=== PATIENT | male | born 1955 | race Caucasian/White ===

== ENCOUNTER 2018-01-08 09:00 | Outpatient (RCR) | payer MEDICAID, SELFPAY ==
--- NOTE | 2017-07-21 10:53 | HP.PTEVAL ---
Patient's Visit Information MAGALY MENDES is a 62 year old M referred to Physical Therapy by Silverio Mccoy with a diagnosis of CVA. Date of Evaluation: 07/21/17 Physical Therapist: Lloyd Quick DPT, OC - Visit Plan Frequency: 2x /Week Duration: 4-6 Weeks Plan: 2x/week for 4-6 weeks for... Gait training wioth decreasding AD as safety allows. Balance static and dynamic, including pregait. R LE strength and coordination/proprioception ex. HS and gastroc stretches. progress HEP - Subjective Subjective: Had CVA 02/27. Fell in the middle of floor(no injuries) In hospital 12 days then reheb for 8 weeks. Out of rehab 05/30. Had home health til 2 weeks ago. Doing standing and sitting ex at home. Symptoms are R sided weakness in the knee. R arm doesn;t work well. Uses keven walker in L mod I, keven cane with assist. 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 Lives with brother now due to stroke but wants to be on own when he gets better. Sleep is up every two hours due to water pill. Currently napping and watching tV. Walks outside [address]. Dresses self, One handed makes dishes and cleaning hard. Bathroom OK I with L UE. Showering in walk in shower seated I. Get to walking better is goal. - Pain R UE Pain Intensity (Out of 10): 3 Pain Intensity Range: 2, 3 - Objective Walks with keven walker in L, decent step lengths, R leg abducted mildly, slow but mod I, diminished motorcontrol in knee and ankle. Transfers out of chair leaning to L and using L hand. Mat mobility I but poor motor control R UE and LE. Needs to use L side. Standing balance is good but WB mostly L. Step are not observed today but subjectively using L only and needs rail and down backwards. R LE motor control is poor. gastroc and soleus and HS are tight on R vs. L. R hip strength 3+, L is 4. R knee strength ext 4 and flexion 4-, L is 5/5. ankle 5/5 L and 4/5 in ROM limited. reflexes 2/3 in patella and achilles. Sensation WNL to gross light touch B. Ambulate with LBQC L SBA,. Ambulate without AD poor confidence and short L step length. R leg is still abducted and hesitant to shift weight FW and to R. Romberg 30 eo and 30 sec ec easily but relies on L. can tolerate moderate perturbations. - Goals Goal 1:: Ambulate with cane I withotu gait deviations community Goal Time Frame: 4-6 Weeks Goal 2:: Steps with one rail reciprocally and I Goal Time Frame: 4-6 Weeks Goal 3:: Able to tolerate FGA without AD Goal Time Frame: 4-6 Weeks Goal 4:: I approp R LE exercises. Goal Time Frame: 4-6 Weeks - Rehabilitation Potential Physical Therapy Diagnosis: CVA R sided motor deficitis LE limiting gait and mobility. OT liu love care of UE. Rehabilitation Potential: Fair - Anticipated Interventions Patient/Client Instruction: Educate patient on: Condition, Plan of Care For the Purpose of:: To improve ability of physical actions for home/community/work/leisure, To improve gait and locomotor functions Therapeutic Exercise to Include: Strength training, Balance training, Coordination, Flexibilty training For the Purpose of:: To improve ability of physical actions for home/community/work/leisure, To improve gait and locomotor functions Thank you for the opportunity to evaluate your patient. For Medicare and Medicare HMO plans, please review the plan of care and approve it. It will need to be FAXED BACK to us at [phone] for Medicare purposes. Please let me know if there are questions or concerns regarding this plan of care. Physician Signature: Date:
--- NOTE | 2017-07-21 11:23 | HP.OTEVAL ---
Patient's Visit Information MAGALY MENDES is a 62 year old M, referred to Occupational Therapy by Silverio Mccoy,, with a diagnosis of CVA. Date of Evaluation: 07/21/17 Occupational Therapist: Cassandra Beltran, CYRIL/Jose Angel, CHT - Subjective Subjective: PT suffered a CVA 02-27-17- suffering a fall during the process and may have injured his right shoulder during the fall. Pt went to ER in [place] was released and drove home 2 hours and then went to the [facility] and was dx and treated for his CVA- pt states he was at the hospital 10-12 days and then went to rehab in [place] for 8 weeks- pt states he moved in with his brother and was reciving home therapy- but he was D/C from home services about two weeks ago- pt would like to get more funciton back to increase his ind. with IADLS and ADLS. 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 5 degrees left WNL ROM Comments: limited RUE AROM- right shoulder PROM is limited due to pain in shoulder- - Strength Heading And Priming Tool Setter: right unable left 115# Lateral Pinch: right Unable left 16# Tripod Pinch: right unable left 12 - Movement Muscle Tone: mod tone in right UE grossly throughout - Stroke Specific Quality of Life Total SS-QOL Score: 128 - Goals Goal:: pt will demo a right supervisor carbon paper coating strength of 50# or greater to increase ind with IADLS by d/c Goal:: pt will demo a increase in righ UE AROM to improve his ind. with BADLS and IADLS Goal:: pt will report pain no greater than 2/10 with right UE ROM by d/c Goal:: pt will demo a gross grasp to warehouse picker a variety of different size objects as precureser for use of right hand for eating. - Rehabilitation General Assessment: right UE Rehabilitation Potential: Good - Anticipated Interventions Anticipated Interventions: A/AAROM/PROM, Strengthening, Modalities, Orthoses, Neuro Reeducation, Education re assistive Equipment - Visit Plan Frequency: 2x /Week Duration: 2 Months General Plan: Initiate OT services 2x week for 8 weeks - work with decrease tone and improve pts functional rom for pt to regain right UE at max potential TEXT: Thank you for the opportunity to evaluate your patient. For Medicare and Medicare HMO plans, please review the plan of care and approve it. It will need to be FAXED BACK to us at [phone] for Medicare purposes. Please let me know if there are questions or concerns regarding this plan of care. Physician Signature: Date:
--- NOTE | 2017-08-23 10:58 | OTREVAL_ITS ---
Silverio Mccoy, It has been my pleasure to treat MAGALY MENDES over the last 10 visits for CVA. Please see the progress note below for an update on the occupational therapy plan of care! Subjective: pain yesterday was terrible- pain started monday night Objective/Function: pt demo in sup- pt mikal. shoulder flex to 95 degrees- increase pain in right shoulder with movment past this degree-. pt developing a right elbow increase in tone- mod-max tone and contracture to -30 degrees-. mod-max tone with forearm supination - Plan Frequency: 2x /Week Duration: 2 Months Plan: rec'd pt to work with family doctor to seek nurologist-. and ortho for shoulder pain Goals - Goals Goal:: pt will demo a right occupational physician strength of 50# or greater to increase ind with IADLS by d/c Goal:: pt will demo a increase in righ UE AROM to improve his ind. 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 Anticipated Interventions Anticipated Interventions: A/AAROM/PROM, Strengthening, Modalities, Orthoses, Neuro Reeducation, Education re assistive Equipment Please do not hesitate to contact me at [phone] by phone or Fax: if you have questions or concerns regarding this new plan of care! Sincerely, Cassandra Beltran, OTR/L, CHT
--- NOTE | 2017-08-23 11:05 | HP.PTREVAL_ITS ---
Silveroi Mccoy, It has been my pleasure to treat MAGALY MENDES over the last 9 visits for CVA. Please see the progress note below for an update on the physical therapy plan of care! Subjective: R knee not getting any stronger. Been dragging R toe more. Using hemiqalker 100% of the time. R arm still hurting 2/10. Balance going the right way. Bed/chair transfers are OK. Doing exercises at home daily standing. Objective/Function: Has some strength in hip flexors and DF on r and HS but motor recruitment pattern is off for gait. Ambulating with hemiwalker L slowly , steos with R and meets it with L , no L step length and this is limiting and swing phase for R LE for patient. No confidence without AD but can do a couple short steps with R but bno swing through with R. Plan Plan: 2x/week x 4 for gait and pregait trying to get L step length and more weight through R LE. Work with keven walker and parallel bars on gait training. Goals Goal 1:: Ambulate with cane I withotu gait deviations community Goal Time Frame: 4-6 Weeks Goal Progress: Progressing Goal 2:: Steps with one rail reciprocally and I Goal Time Frame: 4-6 Weeks Goal Progress: not confident. Goal 3:: Able to tolerate FGA without AD Goal Time Frame: 4-6 Weeks Goal Progress: Progressing Goal 4:: I approp R LE exercises. Goal Time Frame: 4-6 Weeks Goal Progress: Goal Met Goal 5:: Gait in community with approp R swing phase Goal Time Frame: 2-4 Weeks Goal Progress: NEW GOAL Goal 6:: Ambulate 100 feet without AD safely in PT Goal Time Frame: 2-4 Weeks Goal Progress: NEW GOAL. Anticipated Interventions Patient/Client Instruction: Educate patient on: Condition, Plan of Care For the Purpose of:: To improve ability of physical actions for home/community/ work/leisure, To improve gait and locomotor functions Therapeutic Exercise to Include: Strength training, Balance training, Coordination, Flexibilty training For the Purpose of:: To improve ability of physical actions for home/community/ work/leisure, To improve gait and locomotor functions Please do not hesitate to contact me at [phone] by phone or Fax: if you have questions or concerns regarding this new plan of care! Sincerely, Lloyd Quick, DPT, OC
--- NOTE | 2017-09-20 09:34 | HP.PTREVAL_ITS ---
Silverio Mccoy, It has been my pleasure to treat MAGALY MENDES over the last 16 visits for CVA. Please see the progress note below for an update on the physical therapy plan of care! Subjective: Getting around better. R toe drags at times when he is tired. No falls, uses keven walker all the time. Staying fairly active. Walking at home well but arm limits his ADLs. Steps at home with left leg and rail. Objective/Function: Sit to stand to sit I with UE. Walks with keven walker L mod I. Walks with st cane L mod I but diminished confidence. Walks 15 feet today in bars without UE well with CGA, good support on R LE but no knee flexion at swing phase. Has good step length B in all gait today without VC. Steps are with L LE only up and down but with VC and L rail can use R LE up and down steps, obviously weaker and needs 50% help with UE when using R LE. Stand balance is good. See FGA for dynamic balance. OVERALL MUCH BETTER IN VERTICAL POSITION AND PROGRESSING NICELY. DF 3/5 on R LE and knee and ankle stiff/ hypertonic. but aROM WFL. Plan Plan: 2x/week for 4 weeks for gait without AD, Stair training with R LE, R DF strength, gastroc stretching and HIP PROM/strength R. Functional progression. Goals Goal 1:: Ambulate with cane I withotu gait deviations community Goal Time Frame: 4-6 Weeks Goal Progress: Progressing Goal 2:: Steps with one rail reciprocally and I Goal Time Frame: 4-6 Weeks Goal Progress: Progressing Goal 3:: Able to tolerate FGA without AD Goal Time Frame: 4-6 Weeks Goal Progress: Goal Met Goal 4:: Walk 20 feet without AD safe aand I and steps reciprocal with one rail. Goal Time Frame: 4-6 Weeks Goal Progress: NEW GOAL Goal 5:: Gait in community with approp R swing phase Goal Time Frame: 2-4 Weeks Goal Progress: Goal Met Goal 6:: Cane main support device fro mobility. Goal Time Frame: 4-6 Weeks Goal Progress: NEW GOAL. Anticipated Interventions Patient/Client Instruction: Educate patient on: Condition, Plan of Care For the Purpose of:: To improve ability of physical actions for home/community/ work/leisure, To improve gait and locomotor functions Therapeutic Exercise to Include: Strength training, Balance training, Coordination, Flexibilty training For the Purpose of:: To improve ability of physical actions for home/community/ work/leisure, To improve gait and locomotor functions Please do not hesitate to contact me at [phone] by phone or Fax: if you have questions or concerns regarding this new plan of care! Sincerely, Lloyd Quick, DPT, OC
--- NOTE | 2017-09-25 10:33 | OTREVAL_ITS ---
Silverio Mccoy, It has been my pleasure to treat MAGALY MENDES over the last 18 visits for CVA. Please see the progress note below for an update on the occupational therapy plan of care! Subjective: Pt states he has no pain, no difference noted. Objective/Function: pt demo improvement in grasp and release- as well as elbow flex. pt is making gains in ROM and would benefit from cont. therapy services- Plan Frequency: 2x /Week Duration: 2 Months Plan: Cont POC Goals - Goals Goal:: pt will demo a right assistant front office manager strength of 50# or greater to increase ind with IADLS by d/c Goal:: pt will demo a increase in righ UE AROM to improve his ind. with BADLS and IADLS Goal:: pt will report pain no greater than 2/10 with right UE ROM by d/c Goal:: pt will demo a gross grasp to meat pickler a variety of different size objects as precureser for use of right hand for eating. Anticipated Interventions Anticipated Interventions: A/AAROM/PROM, Strengthening, Modalities, Orthoses, Neuro Reeducation, Education re assistive Equipment Please do not hesitate to contact me at [phone] by phone or Fax: if you have questions or concerns regarding this new plan of care! Sincerely, Cassandra Beltran OTR/L, CHT
--- NOTE | 2017-10-19 11:26 | HP.PTREVAL_ITS ---
Silverio Mccoy, It has been my pleasure to treat MAGALY MENDES over the last 23 visits for CVA. Please see the progress note below for an update on the physical therapy plan of care! Subjective: Doing OK, no pain. Sleeping is OK, gets up once per night to pee. HEP: standing sink ex adn supine strength. Daily. Stretching also daily. Watches alot of TV during the day. No current hobbies. 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 Dresses self I, bathroom I. Shower I. Brother makes sure he is safe on the steps. Uses keven walker at home, feels ready for LBQC. Objective/Function: walking with cane Mod I in therapy, no toe catching. Steps are reciprocal with rail. Walking steps are equal and much improved, R still lacks confidence. OVERALL SHOWING FUNCTIONAL IMPROVEMENT. LACKS HUIGHER LEVEL BALANCE FOR STEPPING OVER. CONFIDENCE IS LOW AND WILL NEED PROGRESSION WITH UNEVEN SURFACES. Plan Plan: 2X/WEEK for 4 weeks to work on gait with stepping over, turning, stooping and picking up, foam balance and continuing movement of R LE. Goals Goal 1:: Ambulate with cane I withotu gait deviations community Goal Time Frame: 4-6 Weeks Goal Progress: Progressing Goal 2:: pt have and I use of AFO which he will get OTC Goal Time Frame: 4-6 Weeks Goal Progress: NEW GOAL Goal 3:: 20/30 FGa to minimize future fall risk Goal Time Frame: 4-6 Weeks Goal Progress: NEW GOAL Goal 4:: Walk 20 feet without AD safe aand I and steps reciprocal with one rail. Goal Time Frame: 4-6 Weeks Goal Progress: Goal Met Goal 5:: Gait in community with approp R swing phase Goal Time Frame: 2-4 Weeks Goal Progress: Goal Met Goal 6:: Cane main support device fro mobility and pt get around at home without AD Goal Time Frame: 4-6 Weeks Goal Progress: Progressing Anticipated Interventions Patient/Client Instruction: Educate patient on: Condition, Plan of Care For the Purpose of:: To improve ability of physical actions for home/community/ work/leisure, To improve gait and locomotor functions Therapeutic Exercise to Include: Strength training, Balance training, Coordination, Flexibilty training For the Purpose of:: To improve ability of physical actions for home/community/ work/leisure, To improve gait and locomotor functions Please do not hesitate to contact me at [phone] by phone or Fax: if you have questions or concerns regarding this new plan of care! Sincerely, Lloyd Quick, DPT, OC
--- NOTE | 2017-10-19 12:14 | HP.OTREVAL ---
Silverio Mccoy, It has been my pleasure to treat MAGALY MENDES over the last 25 visits for CVA. Please see the progress note below for an update on the occupational therapy plan of care! Subjective: pt arrives with brother- pt states he is doing well- Objective/Function: pt demo shoulder flex passive to 110 pt gets pain in shoulder with more flex- - active flex to 30 degrees-. elbow flex to 90 and ext to -30-. pt demo the ability to grasp toothbrush in right hand with thumb and IF-. with grasp pt demo increase flex of digits but tires with ext after few trials- with use of FES pt demo full digit and wrist ext. pt's pain in right shoulder with PROM is limiting factor with gainig more PROM at this time-. PT is working hard and is making gains with his recovery- Plan Frequency: 2x /Week Duration: 2 Months Plan: Pt is making gains with is RUE recovery- He has demo increase ability to use right hand for assistive hand with BADLS- pt would benefit from cont. therapy services 2x week for 8 weeks- to gain increase ROM and functional grasp/release for useo of RUE with BADLS. Therapy will focus on shoulder flex while pt is sup on mat- use of dowel kate to decrease shoulder tightness and risk of frozen shoulder-pt will initiate use of shoulder pully at home for PROM - stressed the need of performing tasks slow- with pts improvments will work on a grasp release tasks for BADLS. Goals - Goals Goal:: pt will demo a right career center director strength of 50# or greater to increase ind with IADLS by d/c Goal:: pt will demo a increase in righ UE AROM to improve his ind. with BADLS and IADLS Goal:: pt will report pain no greater than 2/10 with right UE ROM by d/c Goal:: pt will demo a gross grasp to picker and sorter load and unload a variety of different size objects as precureser for use of right hand for eating. Anticipated Interventions Anticipated Interventions: A/AAROM/PROM, Strengthening, Modalities, Orthoses, Neuro Reeducation, Education re assistive Equipment Please do not hesitate to contact me at [phone] by phone or if you have questions or concerns regarding this new plan of care! Sincerely, Cassandra Beltran, OTR/L, CHT
--- NOTE | 2017-11-13 11:00 | HP.PTREVAL_ITS ---
Silverio Mccoy, It has been my pleasure to treat MAGALY MENDES over the last 30 visits for CVA. Please see the progress note below for an update on the physical therapy plan of care! Subjective: No pain, sleeping well. Sleeping 4-5 hours. Naps in afternoon. Was outside a lot this weekend. Went to visit friends yesterday. Walking with QC at home. Had steps without rail and did OK, used doorframe. Dresses self in ten minutes. Getting socks on with one hand is the hardest part. Bathroom self, showers in walk in shower with two grab bars and has bench to sit on but is standing. Saw doctor last weeka dn will f/u in april. No falls lately. Uses keven walker upstairs for 15 feet as he has to meander around a couple things. Getting in and out of bed I. Using steps at home using L rail up with both feet, backs down due to dysfunction of R UE. Catches toe on change of surface when tired once every couple days. Objective/Function: Pt not interested in AFO. Patient ambulates Mod I with QC , goes two full laps easily without QC and still mildly wide VARGHESE, no catchin toes note but R LE still lacks flexion at knee at swing whicih is improving and getsd better with VC. Pt is slow to change directions and poor confidence here.Strength in R LE 4/5 knee flexion and extension, tone limtis knee flexion actively ROM. Able to get up off floor with Min a and VC using object to push with L UE and VC for technique. Able to walk up steps with CGA without UE reciprocal but obviously weaker on R, coming down steps needs arm on rail to use R LE. OVERALL SLOW IMPROVEMENT AND GETTING HARDER TO NOTICE. STILL HAVE SOME WORK TO DO WITH FUNCTIONAL MOBILITY OFF FLOOR, DESCENDING STEPS AND TURNS WHILE WALKING WITHOUT AD. Plan Plan: 2x/week for 4 weeks.... Work on transfer up off floor, ian cending steps reciprocal without rail, walking changing directions and progression to more aggressive HEP vs the sink ex he is doing now. Walk outside when weather allows. Goals Goal 1:: Ambulate with cane I withotu gait deviations community Goal Time Frame: 4-6 Weeks Goal Progress: met, stilld eviations. Goal 2:: Get off floor without assist, descend steps without rail Goal Time Frame: 4-6 Weeks Goal Progress: NEW GOAL Goal 3:: 20/30 FGa to minimize future fall risk Goal Time Frame: 4-6 Weeks Goal Progress: Progressing Goal 4:: Walk 20 feet without AD safe aand I and steps reciprocal with one rail. Goal Time Frame: 4-6 Weeks Goal Progress: Goal Met Goal 5:: Gait in community with approp R swing phase Goal Time Frame: 2-4 Weeks Goal Progress: Goal Met Goal 6:: Cane main support device fro mobility and pt get around at home without AD Goal Time Frame: 4-6 Weeks Goal Progress: Goal Met Anticipated Interventions Patient/Client Instruction: Educate patient on: Condition, Plan of Care For the Purpose of:: To improve ability of physical actions for home/community/ work/leisure, To improve gait and locomotor functions Therapeutic Exercise to Include: Strength training, Balance training, Coordination, Gait and locomotor training For the Purpose of:: To improve ability of physical actions for home/community/ work/leisure, To improve gait and locomotor functions Please do not hesitate to contact me at [phone] by phone or Fax: if you have questions or concerns regarding this new plan of care! Sincerely, Lloyd Quick, HILLARY[place], OC
--- NOTE | 2017-12-07 10:22 | HP.PTREVAL_ITS ---
Silverio Mccoy, It has been my pleasure to treat MAGALY MENDES over the last 37 visits for CVA. Please see the progress note below for an update on the physical therapy plan of care! Subjective: Using cane most of time at home. Walks short 5 feet without it. Sleeping Ok. Steps are no problem with railing at home either foot. Does exercises for OT and PT. Getting outside is hard due to weather. doing exercises regularly at home. Objective/Function: Steps with rail reciprocal safe and I. Gait is good, tends to peg leg R but can bend it well with VC. No toe catching today after brutal 30 minute workout. FGA improving. OVERALL PATIENT DOING WELL IMPROVING ON FGA AND GAIT SAFETY. HE WILL DO WELL WITH HEP IF HE STAYS ACTIVE WITHOUT PT, THAT IS MY BIGGEST CONCERN. WITH HIS LIMITED VISITS, IT IS TIME TO LET HIM TRY ON HIS OWN FOR A MONTH AND RECHECK END DECEMBER.Recommended continued use of cane. Pt has info to get OTC AFO but continues to refuse. Plan Plan: Pt to continue HEP adn stay active, clal if problems. otherwise f/u in one month for FGA, outdoor ambulation and recheck. Goals Goal 1:: Ambulate with cane I withotu gait deviations community Goal Time Frame: 4-6 Weeks Goal Progress: approp gait dev. Goal 2:: Get off floor without assist, descend steps without rail Goal Time Frame: 4-6 Weeks Goal Progress: Goal Met Goal 3:: 20/30 FGa to minimize future fall risk Goal Time Frame: 4-6 Weeks Goal Progress: Goal Met Goal 4:: Walk 20 feet without AD safe aand I and steps reciprocal with one rail. Goal Time Frame: 4-6 Weeks Goal Progress: Goal Met Goal 5:: Pt maintain activity level and FGa score without PT for one month Goal Time Frame: 2-4 Weeks Goal Progress: NEW GOAL Goal 6:: Cane main support device fro mobility and pt get around at home without AD Goal Time Frame: 4-6 Weeks Goal Progress: Goal Met Anticipated Interventions Patient/Client Instruction: Educate patient on: Condition, Plan of Care For the Purpose of:: To improve ability of physical actions for home/community/ work/leisure, To improve gait and locomotor functions Therapeutic Exercise to Include: Strength training, Balance training, Coordination, Gait and locomotor training For the Purpose of:: To improve ability of physical actions for home/community/ work/leisure, To improve gait and locomotor functions Please do not hesitate to contact me at [phone] by phone or Fax: if you have questions or concerns regarding this new plan of care! Sincerely, HILLARY ParkerT, OC
--- NOTE | 2018-01-08 09:46 | HP.PTDCSUM_ITS ---
HP - PT D/C Summary It has been my pleasure to treat MAGALY MENDES under orders from Silverio Mccoy , for the diagnosis of CVA for a total of 38 visit(s). Discharge Date: 01/08/18 Please see the following information for a summary of their discharge status. - Subjective Subjective: Getting around status quo, one day at a time. Going up and down stairs pretty good. No falls. Using cane 90% of time. Walks without it at times and is pretty safe but wants to use it. R arm hurts a little bit at night sometimes. will get botox at some point in arm. Walking on concrete outside. Did some grass walking pn the weekend and was slippery and had to be careful. Do my exercises dailya nd watch TV. Carrying some dishes to the sink. Living with brother and bedroom is upstairs. Doing steps OK. Needs more time with brother but not more therapy. - Pain R UE Pain Intensity (Out of 10): 0 - Overall Improvement % Improvement: 50 - Objective Objective/Function: FGA is the same as last time. Pt walked full lap on grass and hills around building without aD without LOB, slow and steady. continues to have slightly wide VARGHESE and difficulty bending R knee but only caught toe one time today and no tripping or falling or LOB. Slight R trendelenberg continues but fucntional walker without AD today. Educated to take care when tired. Pt will continue to use cane. steps reciprocal without rail up and needs rail for reciprocity to descend. - Goals Goal 1:: Ambulate with cane I withotu gait deviations community Goal Progress: approp gait dev. Goal 2:: Get off floor without assist, descend steps without rail Goal Progress: Goal Met Goal 3:: 20/30 FGa to minimize future fall risk Goal Progress: Goal Met Goal 4:: Walk 20 feet without AD safe aand I and steps reciprocal with one rail. Goal Progress: Goal Met Goal 5:: Pt maintain activity level and FGa score without PT for one month Goal Progress: Goal Met Goal 6:: Cane main support device fro mobility and pt get around at home without AD Goal Progress: Goal Met - Plan Plan: D/C, pt to doctor in 3 months. Does nto wish to pursue AFO. - D/C Information Discharge Comments: Pt maintaining mobility on own with HEP very well. lacks confidence in mobility despite walking on hilss and grass without LOB today. Biggest concern is OT for arm. Awaiting botox injection as arm is what keeps him from giing back on his own(Only one functional arm). If there are questions or concerns regarding this patient's physical therapy, please feel free to call me at [phone]. Thank you for the referral of this patient. Sincerely, Lloyd Quick, DPT, OC
--- NOTE | 2018-01-24 07:56 | HP.OTDCNRP_ITS ---
HP - Discharge Summary - Patient Information MAGALY MENDES was seen in my office for initial evaluation on 07/21/17. The following Plan of Care was established for this patient: Initial Frequency: 2x /Week Initial Duration: 2 Months Plan: pt has [address] pt on hold until he recives botox and get pt scheduled following botox - Anticipated Interventions Anticipated Interventions: A/AAROM/PROM, Strengthening, Modalities, Orthoses, Neuro Reeducation, Education re assistive Equipment This patient was last seen in our office 11/09/17. Pertinent comments regarding their Occupational therapy will appear below: Pt was seem in OT to increase functional use of UE. Therapy was placed on hold until pt was to get botox injections. he has not done so at this time. OT will D /C pt at this time and return with new order after Botox. At this point I will be discontinuing this patient from occupational therapy. I would be happy to see this patient again in the future if found appropriate by the physician. Thank you! Cassandra Beltran, OTR/L, CHT
== END 2018-01-08 19:00 | disposition home or self-care (01) ==
LOC: PT 09:00
PROVIDERS: Family Provider Family Medicine; PCP Family Medicine; Visit Provider Family Medicine
DX: Z86.73 Personal history of transient ischemic attack (TIA), and cerebral infarction without residual deficits (principal)
CPT/HCPCS: 97110 ×10; 97112 ×4; 97162; 97166; 97530 ×6; 97116; 97140; G8987; G8988

== ENCOUNTER 2019-01-15 09:00 | Outpatient (RCR) | payer MEDICAID, SELFPAY ==
--- NOTE | 2018-11-15 11:18 | HP.OTEVAL_ITS ---
Patient's Visit Information MAGALY MENDES is a 63 year old M, referred to Occupational Therapy by Humphrey Moise, with a diagnosis of CVA. Date of Evaluation: 11/15/18 Occupational Therapist: Cassandra Beltran, CYRIL/Jose Angel, CHT - Subjective Subjective: Pt states he return to drAntonio for follow up. pt states he would like to gain increase ROM. Pt suffered a CVA in 2017. pt is currently living on his own, states he drives ind., and is LALITHA with ADLs and IADLs. pt would like to have more movement and function out of his left UE to possibly get a job. - ADLs Comments: pt is MOD ind. with ADLs and IADLS , drives ind. and does his own shopping. pt is wearing a brace at night on right wrist/hand to decrease tone, and does use the brace while he is driving. - Pain right UE 7 - ROM Shoulder: Right flex 20 right abd 85 left WNL Elbow: right -55/125 left WNL Forearm: right pron WFL, supination N. left WNL Wrist: wrist 10/15 left WNL ROM Comments: pt demo with ability to lightly close hand and demo ext of all digits- in this setting IF limited with PIP ex- pt indicates when he is home he is more relaxed and can straighten all his digits. 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 pt demo bicep -55/125. pt demo with no active foream supination. pt demo fair pronation abilit. pt demo with min wrist ext and digit ext. pt demo with min grasp and pinch - In-Hand Manipulation Finger to Palm Translation: Unable - Right, Normal - Left Palm to Finger Translation: Unable - Right, Normal - Left Shift: Unable - Right, Normal - Left Rotation: Unable - Right, Normal - Left - Quick DASH-Disab of Arm,Shoulder& Hand Quick DASH Score: 77.1595 - Goals Goal:: pt will demo right shoulder flex to 100* or greater without shoulder abduction compensation to increase ind with ADLs. Pt will demo right forearm supination to recive and hold object ind. for increase use of right UE for ADLS. pt will demo a increase in elbow ext by 20* to increase pts ind with picking objects up off the floor by d/c Goal:: pt will report pain no greater than 2/10 with use of right UE with ADLs and IADLs by d/c Goal:: pt will demo the ability to picker large, med, and small objects to assist with ADLS by d/c Goal:: pt will demo a reduction in right UE tone to min/mod tone of right UE by d/c. - Rehabilitation General Assessment: Right UE limited ROM and limited functional use of right UE for ADLs and IADLs. pt would benefit from skilled OT services 3x week for 6 weeks to increase pts functional ROM/ decrease tone and increase FMS of right UE for increase ind with ADLs and IADLs. Rehabilitation Potential: Fair - Anticipated Interventions Anticipated Interventions: A/AAROM/PROM, Triggerpoint Release, Modalities, Orthoses, Education re assistive Equipment, Home Program - Visit Plan Frequency: 3x /Week Duration: 6 Weeks TEXT: Thank you for the opportunity to evaluate your patient. For Medicare and Medicare HMO plans, please review the plan of care and approve it. It will need to be FAXED BACK to us at [phone] for Medicare purposes. Please let me know if there are questions or concerns regarding this plan of care. Physician Signature: Date:
--- NOTE | 2018-11-16 08:32 | HP.PTEVAL_ITS ---
Patient's Visit Information MAGALY MENDES is a 63 year old M referred to Physical Therapy by Humphrey Moise with a diagnosis of Stroke late effect. Date of Evaluation: 11/16/18 Physical Therapist: Lloyd Quick, HILLARYT, OCS, CSCS - Visit Plan Frequency: 3x /Week Duration: 2-4 Weeks Plan: 3x/week for 2-4 weeks for. Teach HS, quad, gastroc stretch for HEP. Teach LE focussing on R strength program patient can do at home and include R ankle as much as possible. Try to work to I over two weeks as patient has been through this prior and is poor with compliant with HEP, despite this, his mobility is better than I would have expected. - Subjective Findings: Came back for OT. Needed adjustments to UE. R LE doesn't do what he tells it. It is not getting better. Wants to walk better. Uses [employer] for crutcha s needed in L UE. Not using it much at home. Exercising alittle bit at home in easy chair. Not employed. Watches TV all day. Dresses self, bathes and bathroom I. Lives alone. Has steps at home to basement once a week to wash clothes. Backs down and up forward. Drive and grocery shop I. No falls. Sits down if gets tired. No pain. - Objective Pt walks with R spastic LE adn UE but I with and without LBQC in L UE, R knee flexes very little adn minimal ankle movement on R but safe and I. Trasnfers out of chair without UE I but WB mostly through L LE., Bed trasnfers via L sidelie I. steps are I with rail descending BW adn ascending forward. Needs rail and can do this at home with laundry. L LE AROM WFL, some mild tightness in HS/quad and gastroc/soleus. R LE very tight and high tone HS nad gastroc at -5 DF and -48 90/90 HS test. reflexes are 3/3 with clonus R LE achilles and patella, 2/3 L. Sensation WNl to gross light touch B LE. Strength is 4/5 R LE adn 4+ L. UE AROM limited R side due to stroke and seeing OT for this. - Balance Scores Functional Gait Assessment Score: 24 % Disability: 20.0000 - Goals Goal 1:: Patient I in appropriate HEP to stretch out R LE adn strengthen LE. Goal Time Frame: 4-6 Weeks - Rehabilitation Potential Physical Therapy Diagnosis: Deficits form stroke, poorly managed lacking HEP btu getting around fairly well. Rehabilitation Potential: Fair - Anticipated Interventions Patient/Client Instruction: Educate patient on: Condition, Plan of Care For the Purpose of:: To improve ability of physical actions for home/community/work/leisure Therapeutic Exercise to Include: Strength training, Flexibilty training, Active ROM For the Purpose of:: To increase ROM, To improve muscle performance and motor function, To improve health and function Thank you for the opportunity to evaluate your patient. For Medicare and Medicare HMO plans, please review the plan of care and approve it. It will need to be FAXED BACK to us at [phone] for Medicare purposes. For Medicare only, by signing this I certify the plan of care. Please let me know if there are questions or concerns regarding this plan of care. Physician Signature: Date:
--- NOTE | 2019-01-15 09:58 | HP.OTDCSUM_ITS ---
HP - OT D/C Summary It has been my pleasure to treat MAGALY MENDES under orders from Humphrey Moise, for the diagnosis of CVA for a total of 26 visit(s). Please see the following information for a summary of their discharge status. - Overall Improvement % Improvement: 30 - Objective Objective/Function: pt demo with shoulder flex at 80* this is increase from 20* with elbow bending, shoudler abduction at 90 with compensation- pt demo good control of elbow flex/ext, elbow ext at -30 and elbow flex 145 with mmt of elbow flex at 3+/5 and elbow ext at 4/5. pt demo with wrist flex and ext with good tenodisis- better movement from inital eval with MMT at 3/5 pts tone demo difficulty with consistent fluid motion. digits do demo increase in contracture at PIP joints with wrist motion. pt demo the ability to garbage pick up man pen, marker and nut/bolt off table top with use of thumb and IF. pt unable to pick smaller obkects up off table top. pt is using oval 8 splints on his right IF and MF to limit PIP hyper ext., a resting night brace., while driving padded hand brace to decrease tone in tone. - Goals Patient Goals: Regain Mobility, Be More Independent in ADLS Goal:: pt will demo right shoulder flex to 100* or greater without shoulder abduction compensation to increase ind with ADLs. Pt will demo right forearm supination to recive and hold object ind. for increase use of right UE for ADLS. pt will demo a increase in elbow ext by 20* to increase pts ind with picking objects up off the floor by d/c Goal:: pt will report pain no greater than 2/10 with use of right UE with ADLs and IADLs by d/c Goal:: pt will demo the ability to garbage pick up man large, med, and small objects to assist with ADLS by d/c Goal:: pt will demo a reduction in right UE tone to min/mod tone of right UE by d/c. - Plan Plan: D/C due to insurance decline in cont. of pts policy pt is D/C with HEP. - D/C Information Discharge Comments: pt was seen for visit- pt was making good gains with AROM and increase use of right UE. Pt was set with good HEP to cont. to challenge ROM and functional use of wrist/grasp- Pt is D/C due to insurance company dropping pts policy and will no longer cover pt. pt is looking into new insurance at this time. If there are questions or concerns regarding this patient's occupational therapy, please fell free to call me at [phone]. Thank you for the referral of this patient. Sincerely, Cassandra Beltran, OTR/L, CHT
== END 2019-01-15 19:00 | disposition home or self-care (01) ==
LOC: OT 09:00
PROVIDERS: Family Provider Family Medicine; PCP Family Medicine; Visit Provider Physical Medicine & Rehabilitation
DX: I69.398 Other sequelae of cerebral infarction (principal)
CPT/HCPCS: 97110; 97112; 97161; 97166; 97168; 97530; 97760

== ENCOUNTER → 2025-03-13 | Outpatient (CLI) | payer MEDICARE, SELFPAY ==
--- OUTSIDE RECORDS SUMMARY | 2025-03-13 06:12 | XMS RPT_ITS | CCD ---
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 Name Role Phone Hermilo Tay Unavailable Unavailable Jasvir, Hermilo Unavailable Unavailable Jasvir, Hermilo Unavailable Unavailable JERZY DO, DR WATT A Primary Care Physician JERZY DO, DR WATT A Primary Care Physician JERZY DO, DR ALYSA Cook Attending Unavailabl e JERZY DO, DR ALYSA Cook Primary Care Unavailabl e JERZY DO, DR ALYSA Cook Attending Unavailabl e JERZY DO, DR ALYSA Cook Primary Care Unavailabl e JERZY DO, DR ALYSA Cook Attending Unavailabl e JERZY DO, DR ALYSA Cook Primary Care Unavailabl e JERZY DO, DR ALYSA Cook Attending Unavailabl e JERZY DO, DR ALYSA Cook Primary Care Unavailabl e Medications Current Medications Medication Drug Class(es) Dates Sig (Normalized) Sig (Original) amLODIPine 5 mg oral tablet (6 sources) Dihydropyridine Calcium Channel Babar Start: 09-19-2023 End: 09-13-2024 amLODIPine 5 mg oral tablet Dose : 5 mg = 1 tab(s), Oral, qDay, # 90 tab(s), 3 Refill(s), Pharmacy: [facility], 183, cm, 08/31/23 8:12:00 EST, Height, kg, 08/31/23 8:02:00 EST, Dosing Weight Start Date: 09/19/23 Stop Date: 09/13/24 Status: Ordered Start: 12-18-2020 End: 08-27-2023 amLODIPine 5 mg oral tablet Dose : 5 mg = 1 tab(s), Oral, qDay, # 90 tab(s), 3 Refill(s), Pharmacy: [facility], 183, cm, 09/01/22 8:02:00 EST, Height, kg, 09/01/22 8:02:00 EST, Dosing Weight Start Date: 09/01/22 Stop Date: 08/27/23 Status: Ordered aspirin 325 mg oral tablet (6 sources) Platelet Aggregation Inhibitor, Nonsteroidal Anti-inflammatory Drug Start: 05-08-2019 aspirin 325 mg or al tablet Dose : 325 mg = 1 tab(s), Oral, Daily, 0 Refill(s) Start Date: 05/08/19 Status: Ordered atorvastatin 20 mg oral tablet (6 sources) HMG-CoA Reductase Inhibitor Start: 09-19-2023 End: 09-13-2024 atorvastatin 20 mg oral tablet Dose : 20 mg = 1 tab(s), Oral, qDay, # 90 tab(s), 3 Refill(s), Pharmacy: [facility], 183, cm, 08/31/23 8:12:00 EST, Height, kg, 08/31/23 8:02:00 EST, Dosing Weight Start Date: 09/19/23 Stop Date: 09/13/24 Status: Ordered Start: 12-18-2020 End: 08-27-2023 atorvastatin 20 mg oral tabl et Dose : 20 mg = 1 tab(s), Oral, qDay, # 90 tab(s), 3 Refill(s), Pharmacy: [facility], 183, cm, 09/01/22 8:02:00 EST, Height, kg, 09/01/22 8:02:00 EST, Dosing Weight Start Date: 09/01/22 Stop Date: 08/27/23 Status: Ordered baclofen 20 mg oral tablet (6 sources) gamma-Aminobutyric Acid-ergic Agonist Start: 05-08-2019 baclofen 20 mg oral tablet Dose : 20 mg = 1 tab(s), Oral, TID, 0 Refill(s) Start Date: 05/08/19 Status: Ordered empagliflozin 10 mg oral tablet (6 sources) Sodium-Glucose Cotransporter 2 Inhibitor Start: 09-19-2023 Jardiance 10 m g oral tablet Dose : 10 mg = 1 tab(s), Oral, qAM, # 90 tab(s), 3 Refill(s), Pharmacy: [facility], Controlled diabetes mellitus without long-term current use of insulin, 183, cm, 08/31/23 8:12:00 EST, Height, kg, 08/31/23 8:02:00 EST, Dosing Weight Start Date: 09/19/23 Status: Ordered Start: 09-01-2022 Jardiance 10 m g oral tablet Dose : 10 mg = 1 tab(s), Oral, qAM, # 90 tab(s), 3 Refill(s), Pharmacy: [facility], Controlled diabetes mellitus without long-term current use of insulin, 183, cm, 09/01/22 8:02:00 EST, Height, kg, 09/01/22 8:02:00 EST, Dosing Weight Start Date: 09/01/22 Status: Ordered Start: 09-01-2021 Jardiance 10 m g oral tablet Dose : 10 mg = 1 tab(s), Oral, qAM, # 90 tab(s), 3 Refill(s), Pharmacy: [facility], Controlled diabetes mellitus without long-term current use of insulin, 182.9, cm, 09/01/21 7:58:00 EST, Height, kg, 09/01/21 7:58:00 EST, Dosing Weight Start Date: 09/01/21 Status: Ordered Start: 01-27-2021 Jardiance 10 m g oral tablet Dose : 10 mg = 1 tab(s), Oral, qAM, # 90 tab(s), 3 Refill(s), Pharmacy: [facility], Controlled diabetes mellitus without long-term current use of insulin, 184, cm, 12/09/20 9:37:00 EDT, Height, kg, 12/09/20 9:37:00 EDT, Dosing Weight Start Date: 01/27/21 Status: Ordered hydroCHLOROthiazide 25 mg oral tablet (6 sources) Thiazide Diuretic Start: 09-19-2023 End: 09-13-2024 hydroCHLOROthiazide 25 mg oral tablet Dose : 25 mg = 1 tab(s), Oral, qDay, # 90 tab(s), 3 Refill(s), Pharmacy: [facility], 183, cm, 08/31/23 8:12:00 EST, Height, kg, 08/31/23 8:02:00 EST, Dosing Weight Start Date: 09/19/23 Stop Date: 09/13/24 Status: Ordered Start: 12-18-2020 End: 08-27-2023 hydroCHLOROthiazide 25 mg or al tablet Dose : 25 mg = 1 tab(s), Oral, qDay, # 90 tab(s), 3 Refill(s), Pharmacy: [facility], 183, cm, 09/01/22 8:02:00 EST, Height, kg, 09/01/22 8:02:00 EST, Dosing Weight Start Date: 09/01/22 Stop Date: 08/27/23 Status: Ordered lisinopril 40 mg oral tablet (6 sources) Angiotensin Converting Enzyme Inhibitor Start: 09-19-2023 lisinopril 40 mg ora l tablet Dose : 40 mg = 1 tab(s), Oral, qDay, # 90 tab(s), 3 Refill(s), Pharmacy: [facility], 183, cm, 08/31/23 8:12:00 EST, Height, kg, 08/31/23 8:02:00 EST, Dosing Weight Start Date: 09/19/23 Status: Ordered Start: 09-01-2022 lisinopril 40 mg oral tablet Dose : 40 mg = 1 tab(s), Oral, qDay, # 90 tab(s), 3 Refill(s), Pharmacy: [facility], 183, cm, 09/01/22 8:02:00 EST, Height, kg, 09/01/22 8:02:00 EST, Dosing Weight Start Date: 09/01/22 Status: Ordered Start: 01-13-2022 lisinopril 40 mg oral tablet Dose : 40 mg = 1 tab(s), Oral, qDay, # 90 tab(s), 3 Refill(s), Pharmacy: [facility], 182.9, cm, 09/01/21 7:58:00 EST, Height, kg, 09/01/21 7:58:00 EST, Dosing Weight Start Date: 01/13/22 Status: Ordered Start: 03-10-2021 lisinopril 40 mg oral tablet Dose : 40 mg = 1 tab(s), Oral, qDay, # 90 tab(s), 3 Refill(s), Pharmacy: [facility], 182.9, cm, 03/10/21 9:12:00 EDT, Height, kg, 03/10/21 9:12:00 EDT, Dosing Weight Start Date: 03/10/21 Status: Ordered metFORMIN hydrochloride 1000 mg oral tablet (6 sources) Biguanide Start: 09-19-2023 End: 09-13-2024 metFORMIN 1000 mg oral tablet (IR) Dose : 1,000 mg = 1 tab(s), Oral, BID, change in dose, # 180 tab(s), 3 Refill(s), Pharmacy: [facility], 183, cm, 08/31/23 8:12:00 EST, Height, kg, 08/31/23 8:02:00 EST, Dosing Weight Start Date: 09/19/23 Stop Date: 09/13/24 Status: Ordered Start: 12-18-2020 End: 08-27-2023 metFORMIN 1000 mg oral table t (IR) Dose : 1,000 mg = 1 tab(s), Oral, BID, change in dose, # 180 tab(s), 3 Refill(s), Pharmacy: [facility], 183, cm, 09/01/22 8:02:00 EST, Height, kg, 09/01/22 8:02:00 EST, Dosing Weight Start Date: 09/01/22 Stop Date: 08/27/23 Status: Ordered metoprolol tartrate 50 mg oral tablet (6 sources) beta-Adrenergic Babar Start: 09-19-2023 End: 09-13-2024 metoprolol tartrate 50 mg oral tablet Dose : 50 mg = 1 tab(s), Oral, BID, # 180 tab(s), 3 Refill(s), Pharmacy: [facility], 183, cm, 08/31/23 8:12:00 EST, Height, kg, 08/31/23 8:02:00 EST, Dosing Weight Start Date: 09/19/23 Stop Date: 09/13/24 Status: Ordered Start: 12-18-2020 End: 08-27-2023 metoprolol tartrate 50 mg or al tablet Dose : 50 mg = 1 tab(s), Oral, BID, # 180 tab(s), 3 Refill(s), Pharmacy: [facility], 183, cm, 09/01/22 8:02:00 EST, Height, kg, 09/01/22 8:02:00 EST, Dosing Weight Start Date: 09/01/22 Stop Date: 08/27/23 Status: Ordered Problems Active Problems Problem Classification Problem Date Documented Date Episodic/Chronic Diabetes mellitus with complications (5 sources) Hyperlipidemia due to type 2 diabetes mellitus; Translations: [Type 2 diabetes mellitus with other specified complication] Onset: 08-23-2023 03-02-2023 Chronic Diabetes mellitus without complication (8 sources) Diabetes mellitus; Translations: [Type 2 diabetes mellitus without complications] Onset: 02-21-2024 05-08-2019 Chronic Disorders of lipid metabolism (6 sources) Mixed hyperlipidemia 05-08-2019 Chronic Essential hypertension (6 sources) Benign essential hypertension 05-08-2019 Chronic Other circulatory disease (6 sources) History of cerebrovascular accident with residual deficit 05-08-2019 Episodic Other connective tissue disease (6 sources) Muscle weakness of upper limb 05-08-2019 Episodic Unclassified (1 source) Unknown / UNK(Unknown) Onset: 04-13-2017 Past or Other Problems Problem Classification Problem Date Documented Da te Episodic/Chronic Other screening for suspected conditions (not mental disorders or infectious disease) (2 sources) Elevated prostate specific antigen [PSA]; Translations: [Elevated prostate specific antigen [PSA]] Onset: 08-23-2023 Episodic Unclassified (1 source) G45.9/M62.81/I69. 392/G81.01/Z51.89 Onset: 04-13-2017 Results Test Name Value Interpretation Reference Range Facility .GFRon 02-21-2024 GFR Non- 96 ml/min/1.73sqm Normal [facility] ([place]) Comment on above: Result Comment: GFR Population mean for , Non- Americans Ages 20-29 = 116 mL/min/1.73 sq.m. Ages 30-39 = 107 mL/min/1.73 sq.m. Ages 40-49 = 99 mL/min/1.73 sq.m. Ages 50-59 = 93 mL/min/1.73 sq.m. Ages 60-69 = 85 mL/min/1.73 sq.m. Ages 70+ = 75 mL/min/1.73 sq.m. Chronic Kidney Disease: Less than 60 mL/min/1.73 square meters End Stage Renal Disease: Less than 15 mL/min/1.73 square meters Performed By: #### F T4 #### [address] [address] #### MCRSO #### [address] [address] GFR 117 ml/min/1.73sqm Normal [facility] ([place]) Comment on above: Result Comment: GFR Population mean for , Non- Americans Ages 20-29 = 116 mL/min/1.73 sq.m. Ages 30-39 = 107 mL/min/1.73 sq.m. Ages 40-49 = 99 mL/min/1.73 sq.m. Ages 50-59 = 93 mL/min/1.73 sq.m. Ages 60-69 = 85 mL/min/1.73 sq.m. Ages 70+ = 75 mL/min/1.73 sq.m. Chronic Kidney Disease: Less than 60 mL/min/1.73 square meters End Stage Renal Disease: Less than 15 mL/min/1.73 square meters Performed By: #### F T4 #### [place] [address] #### MCRSO #### [address] [address] [facility] 02-21-2024 HbA1c (Bld) [Mass fraction] 6.7 % High 4.3-6.4 [facility] ([place]) Comment on above: Performed By: #### F T4 #### [place] [id number] #### MCRSO #### [address] [address] CMPon 02-21-2024 Albumin Level 4.1 G/dL Normal 3.4-4.8 [facility] ([place]) Comment on above: Performed By: #### F T4 #### [place] [id number] #### MCRSO #### [facility] [address] [place], [place] [address] Albumin/Globulin [Mass ratio] 1.1 {ratio} Normal 1.1-2.5 [facility] ([place]) Comment on above: Performed By: #### F T4 #### [address] [address] #### MCRSO #### [address] [address] ALP [Catalytic activity/Vol] 74 U/L Normal 40-135 [facility] ([place]) Comment on above: Performed By: #### F T4 #### [address] [address] #### MCRSO #### [address] [address] ALT [Catalytic activity/Vol] 91 U/L High 16-63 [facility] ([place]) Comment on above: Performed By: #### F T4 #### [address] [address] #### MCRSO #### [address] [address] AST [Catalytic activity/Vol] 37 U/L Normal 10-40 [facility] ([place]) Comment on above: Performed By: #### F T4 #### [address] [address] #### MCRSO #### [address] [address] Bili Total 0.8 mg/dL Normal 0.2-1.0 [facility] ([place]) Comment on above: Result Comment: Use of this assay is not recommended for patients undergoing treatment with eltrombopag due to the potential for falsely elevated results. Performed By: #### F T4 #### [address] [address] #### MCRSO #### [address] [address] BUN/Creatinine Ratio 11 ratio Normal 7-27 [facility] ([place]) Comment on above: Performed By: #### F T4 #### [place] [id number] #### MCRSO #### [address] [address] Calcium [Mass/Vol] 8.8 mg/dL Normal 8.4-10.2 [facility] ([place]) Comment on above: Performed By: #### F T4 #### [address] [address] #### MCRSO #### [address] [address] Chloride [Moles/Vol] 103 mmol/L Normal 98-107 [facility] ([place]) Comment on above: Performed By: #### F T4 #### [address] [address] #### MCRSO #### [address] [address] CO2 [Moles/Vol] 26 mmol/L Normal 23-31 [facility] ([place]) Comment on above: Performed By: #### F T4 #### [place] [id number] #### MCRSO #### [address] [address] Creatinine [Mass/Vol] 0.80 mg/dL Normal 0.70-1.30 [facility] ([place]) Comment on above: Performed By: #### F T4 #### [address] [address] #### MCRSO #### [address] [address] Electrolyte Balance 11.0 mEq/L Normal 4.0-15.0 [facility] ([place]) Comment on above: Performed By: #### F T4 #### [address] [address] #### MCRSO #### [address] [address] Globulin 3.7 G/dL Normal [facility] ([place]) Comment on above: Performed By: #### F T4 #### [address] [address] #### MCRSO #### [address] [address] Glucose [Mass/Vol] 219 mg/dL High 80-115 [facility] ([place]) Comment on above: Performed By: #### F T4 #### [address] [address] #### MCRSO #### [address] [address] Potassium [Moles/Vol] 3.8 mmol/L Normal 3.5-5.1 [facility] ([place]) Comment on above: Performed By: #### F T4 #### [address] [address] #### MCRSO #### [address] [address] Sodium [Moles/Vol] 140 mmol/L Normal 136-145 [facility] ([place]) Comment on above: Performed By: #### F T4 #### [place] [address] #### MCRSO #### [address] [address] Total Protein 7.8 G/dL Normal 6.4-8.2 [facility] ([place]) Comment on above: Performed By: #### F T4 #### [address] [address] #### MCRSO #### [address] [address] Urea nitrogen [Mass/Vol] 9 mg/dL Normal 7-18 [facility] ([place]) Comment on above: Performed By: #### F T4 #### [place] [address] #### MCRSO #### [address] [address] LABORATORYOrdered By: SYSTEM SYSTEM on 02-21-2024 Albumin BCP dye [Mass/Vol] 4.1 G/dL Normal 3.4 - 4.8 G/dL AO ADM SS Albumin/Globulin [Mass ratio] 1.1 {ratio} Normal 1.1 - 2.5 ratio AO ADM SS ALP [Catalytic activity/Vol] 74 U/L Normal 40 - 135 U/L AO ADM SS ALT With P-5'-P [Catalytic activity/Vol] 91 U/L High 16 - 63 U/L AO ADM SS AST With P-5'-P [Catalytic activity/Vol] 37 U/L Normal 10 - 40 U/L AO ADM SS Bilirubin [Mass/Vol] 0.8 mg/dL Normal 0.2 - 1 .0 mg/dL AO ADM SS Comment on above: Interpretive Data: U se of this assay is not recommended for patients undergoing treatment with eltrombopag due to the potential for falsely elevated results. Calcium [Mass/Vol] 8.8 mg/dL Normal 8.4 - 10. 2 mg/dL AO ADM SS Chloride [Moles/Vol] 103 mmol/L Normal 98 - 10 7 mmol/L AO ADM SS CO2 [Moles/Vol] 26 mmol/L Normal 23 - 31 mmol/L AO ADM SS Creatinine [Mass/Vol] 0.80 mg/dL Normal 0.70 - 1.30 mg/dL AO ADM SS Electrolyte Balance 11.0 mEq/L Normal 4.0 - 15 .0 mEq/L AO ADM SS GFR/1.73 sq M.predicted among blacks MDRD (S/P/Bld) [Vol rate/Area] 117 ml/min/1.73sqm Invalid Interpretation Code AO Chemistry S Comment on above: Interpretive Data: GFR Population mean for , Non- Americans Ages 20-29 = 116 mL/min/1.73 sq.m. Ages 30-39 = 107 mL/min/1.73 sq.m. Ages 40-49 = 99 mL/min/1.73 sq.m. Ages 50-59 = 93 mL/min/1.73 sq.m. Ages 60-69 = 85 mL/min/1.73 sq.m. Ages 70+ = 75 mL/min/1.73 sq.m. Chronic Kidney Disease: Less than 60 mL/min/1.73 square meters End Stage Renal Disease: Less than 15 mL/min/1.73 square meters GFR/1.73 sq M.predicted among non-blacks MDRD (S/P/Bld) [Vol rate/Area] 96 ml/min/1.73sqm Invalid Interpretation Code AO Chemistry S Comment on above: Interpretive Data: GFR Population mean for , Non- Americans Ages 20-29 = 116 mL/min/1.73 sq.m. Ages 30-39 = 107 mL/min/1.73 sq.m. Ages 40-49 = 99 mL/min/1.73 sq.m. Ages 50-59 = 93 mL/min/1.73 sq.m. Ages 60-69 = 85 mL/min/1.73 sq.m. Ages 70+ = 75 mL/min/1.73 sq.m. Chronic Kidney Disease: Less than 60 mL/min/1.73 square meters End Stage Renal Disease: Less than 15 mL/min/1.73 square meters Globulin 3.7 G/dL Invalid Interpretation Code AO ADM SS Glucose [Mass/Vol] 219 mg/dL High 80 - 115 mg/dL AO ADM SS HbA1c (Bld) [Mass fraction] 6.7 % High 4.3 - 6.4 % AO ADM SS Potassium [Moles/Vol] 3.8 mmol/L Normal 3.5 - 5.1 mmol/L AO ADM SS Protein [Mass/Vol] 7.8 G/dL Normal 6.4 - 8.2 G/dL AO ADM SS Sodium [Moles/Vol] 140 mmol/L Normal 136 - 145 mmol/L AO ADM SS Urea nitrogen [Mass/Vol] 9 mg/dL Normal 7 - 18 mg/dL AO ADM SS Urea nitrogen/Creatinine [Mass ratio] 11 ratio Normal 7 - 27 ratio AO ADM SS LABORATORYOrdered By: Roma Major on 02-21-2024 Cholesterol [Mass/Vol] 106 mg/dL Normal 0 - 200 mg/dL AO ADM SS Comment on above: Interpretive Data: C holesterol Reference Interval: Less than 200 Desirable 200-239 Borderline high risk 240 and above High risk Cholesterol in HDL [Mass/Vol] 25 mg/dL Low 40 - 60 mg/dL AO ADM SS Cholesterol in LDL [Mass/Vol] 50 mg/dL Normal 0 - 130 mg/dL AO ADM SS Triglyceride [Mass/Vol] 156 mg/dL High 0 - 150 mg/dL AO ADM SS Comment on above: Interpretive Data: T riglyceride Reference Interval: Less than 150 Normal 150-199 Borderline high risk 200-499 High risk 500 or higher Very high risk LIPIDon 02-21-2024 Cholesterol [Mass/Vol] 106 mg/dL Normal 0-200 [facility] ([place]) Comment on above: Result Comment: Chol esterol Reference Interval: Less than 200 Desirable 200-239 Borderline high risk 240 and above High risk Performed By: #### F T4 #### [address] [address] #### MCRSO #### [address] [address] Cholesterol in HDL [Mass/Vol] 25 mg/dL Low 40-60 [facility] ([place]) Comment on above: Performed By: #### F T4 #### [place] [address] #### MCRSO #### [address] [address] Cholesterol in LDL [Mass/Vol] 50 mg/dL Normal 0-130 [facility] ([place]) Comment on above: Performed By: #### F T4 #### [place] [address] #### MCRSO #### [address] [address] Triglyceride [Mass/Vol] 156 mg/dL High 0-150 [facility] ([place]) Comment on above: Result Comment: Trig lyceride Reference Interval: Less than 150 Normal 150-199 Borderline high risk 200-499 High risk 500 or higher Very high risk Performed By: #### F T4 #### [place] [address] #### MCRSO #### [address] [address] FT4on 01-05-2024 Free T4 [Mass/Vol] 0.87 ng/dL Normal 0.76-1.46 [facility] ([place]) Comment on above: Performed By: #### F T4 #### [place] [address] #### MCRSO #### [address] [address] LABORATORYOrdered By: SYSTEM SYSTEM on 01-05-2024 Free T4 [Mass/Vol] 0.87 ng/dL Normal 0.76 - 1. 46 ng/dL AO ADM SS TPO Ab IA Qn 31 unit/mL Normal 0 - 60 unit/mL AH ADM SS Comment on above: Interpretive Data: * *Note - New Reference Range in effect 20 aTPOon 01-05-2024 anti-Thyroid Peroxidase 31 units/ml Normal 0-60 [facility] ([place]) Comment on above: Result Comment: No te - New Reference Range in effect 20 Performed By: #### F T4 #### [address] [address] #### MCRSO #### [place] [address] .GFRon 12-07-2023 GFR 110 ml/min/1.73sqm Normal [facility] ([place]) Comment on above: Result Comment: GFR Population mean for , Non- Americans Ages 20-29 = 116 mL/min/1.73 sq.m. Ages 30-39 = 107 mL/min/1.73 sq.m. Ages 40-49 = 99 mL/min/1.73 sq.m. Ages 50-59 = 93 mL/min/1.73 sq.m. Ages 60-69 = 85 mL/min/1.73 sq.m. Ages 70+ = 75 mL/min/1.73 sq.m. Chronic Kidney Disease: Less than 60 mL/min/1.73 square meters End Stage Renal Disease: Less than 15 mL/min/1.73 square meters Performed By: #### T SH, GFR, CMP #### [address] [address] GFR Non- 91 ml/min/1.73sqm Normal [facility] ([place]) Comment on above: Result Comment: GFR Population mean for , Non- Americans Ages 20-29 = 116 mL/min/1.73 sq.m. Ages 30-39 = 107 mL/min/1.73 sq.m. Ages 40-49 = 99 mL/min/1.73 sq.m. Ages 50-59 = 93 mL/min/1.73 sq.m. Ages 60-69 = 85 mL/min/1.73 sq.m. Ages 70+ = 75 mL/min/1.73 sq.m. Chronic Kidney Disease: Less than 60 mL/min/1.73 square meters End Stage Renal Disease: Less than 15 mL/min/1.73 square meters Performed By: #### T SH, GFR, CMP #### [address] [address] CMPon 12-07-2023 Albumin Level 4.1 G/dL Normal 3.4-4.8 [facility] ([place]) Comment on above: Order Comment: only draw these in November 2023 Performed By: #### T SH, GFR, CMP #### [address] [address] Albumin/Globulin [Mass ratio] 1.2 {ratio} Normal 1.1-2.5 [facility] ([place]) Comment on above: Order Comment: only draw these in November 2023 Performed By: #### T SH, GFR, CMP #### [address] [address] ALP [Catalytic activity/Vol] 72 U/L Normal 40-135 [facility] ([place]) Comment on above: Order Comment: only draw these in November 2023 Performed By: #### T SH, GFR, CMP #### [address] [address] ALT [Catalytic activity/Vol] 84 U/L High 16-63 [facility] ([place]) Comment on above: Order Comment: only draw these in November 2023 Performed By: #### T SH, GFR, CMP #### [address] [address] AST [Catalytic activity/Vol] 35 U/L Normal 10-40 [facility] ([place]) Comment on above: Order Comment: only draw these in November 2023 Performed By: #### T SH, GFR, CMP #### [address] [address] Bili Total 1.0 mg/dL Normal 0.2-1.0 [facility] ([place]) Comment on above: Order Comment: only draw these in November 2023 Result Comment: Use of this assay is not recommended for patients undergoing treatment with eltrombopag due to the potential for falsely elevated results. Performed By: #### T SH, GFR, CMP #### [address] [address] BUN/Creatinine Ratio 15 ratio Normal 7-27 [facility] ([place]) Comment on above: Order Comment: only draw these in November 2023 Performed By: #### T SH, GFR, CMP #### [address] [address] Calcium [Mass/Vol] 8.8 mg/dL Normal 8.4-10.2 [facility] ([place]) Comment on above: Order Comment: only draw these in November 2023 Performed By: #### T SH, GFR, CMP #### [address] [address] Chloride [Moles/Vol] 102 mmol/L Normal 98-107 [facility] ([place]) Comment on above: Order Comment: only draw these in November 2023 Performed By: #### T SH, GFR, CMP #### [address] [address] CO2 [Moles/Vol] 29 mmol/L Normal 23-31 [facility] ([place]) Comment on above: Order Comment: only draw these in November 2023 Performed By: #### T SH, GFR, CMP #### [address] [address] Creatinine [Mass/Vol] 0.84 mg/dL Normal 0.70-1.30 [facility] ([place]) Comment on above: Order Comment: only draw these in November 2023 Performed By: #### T SH, GFR, CMP #### [address] [address] Electrolyte Balance 10.0 mEq/L Normal 4.0-15.0 [facility] ([place]) Comment on above: Order Comment: only draw these in November 2023 Performed By: #### T SH, GFR, CMP #### [address] [address] Globulin 3.5 G/dL Normal [facility] ([place]) Comment on above: Order Comment: only draw these in November 2023 Performed By: #### T SH, GFR, CMP #### [address] [address] Glucose [Mass/Vol] 173 mg/dL High 80-115 [facility] ([place]) Comment on above: Order Comment: only draw these in November 2023 Performed By: #### T SH, GFR, CMP #### [address] [address] Potassium [Moles/Vol] 3.9 mmol/L Normal 3.5-5.1 [facility] ([place]) Comment on above: Order Comment: only draw these in November 2023 Performed By: #### T SH, GFR, CMP #### [address] [address] [address] Sodium [Moles/Vol] 141 mmol/L Normal 136-145 [facility] ([place]) Comment on above: Order Comment: only draw these in November 2023 Performed By: #### T SH, GFR, CMP #### [address] [address] Total Protein 7.6 G/dL Normal 6.4-8.2 [facility] ([place]) Comment on above: Order Comment: only draw these in November 2023 Performed By: #### T SH, GFR, CMP #### [address] [address] Urea nitrogen [Mass/Vol] 13 mg/dL Normal 7-18 [facility] ([place]) Comment on above: Order Comment: only draw these in November 2023 Performed By: #### T SH, GFR, CMP #### [address] [address] TSHon 12-07-2023 TSH Qn 4.44 m[IU]/L High 0.36-3.74 [facility] ([place]) Comment on above: Order Comment: only draw these in November 2023 Performed By: #### T SH, GFR, CMP #### [address] [address] .GFRon 08-23-2023 GFR 103 ml/min/1.73sqm Normal [facility] ([place]) Comment on above: Result Comment: GFR Population mean for , Non- Americans Ages 20-29 = 116 mL/min/1.73 sq.m. Ages 30-39 = 107 mL/min/1.73 sq.m. Ages 40-49 = 99 mL/min/1.73 sq.m. Ages 50-59 = 93 mL/min/1.73 sq.m. Ages 60-69 = 85 mL/min/1.73 sq.m. Ages 70+ = 75 mL/min/1.73 sq.m. Chronic Kidney Disease: Less than 60 mL/min/1.73 square meters End Stage Renal Disease: Less than 15 mL/min/1.73 square meters Performed By: #### P SA, GFR, LIPID, CMP #### [address] [address] GFR Non- 85 ml/min/1.73sqm Normal [facility] ([place]) Comment on above: Result Comment: GFR Population mean for , Non- Americans Ages 20-29 = 116 mL/min/1.73 sq.m. Ages 30-39 = 107 mL/min/1.73 sq.m. Ages 40-49 = 99 mL/min/1.73 sq.m. Ages 50-59 = 93 mL/min/1.73 sq.m. Ages 60-69 = 85 mL/min/1.73 sq.m. Ages 70+ = 75 mL/min/1.73 sq.m. Chronic Kidney Disease: Less than 60 mL/min/1.73 square meters End Stage Renal Disease: Less than 15 mL/min/1.73 square meters Performed By: #### P SA, GFR, LIPID, CMP #### [address] [address] CMPon 08-23-2023 Albumin Level 4.3 G/dL Normal 3.4-4.8 [facility] ([place]) Comment on above: Performed By: #### P SA, GFR, LIPID, CMP #### [address] [address] Albumin/Globulin [Mass ratio] 1.2 {ratio} Normal 1.1-2.5 [facility] ([place]) Comment on above: Performed By: #### P SA, GFR, LIPID, CMP #### [address] [address] ALP [Catalytic activity/Vol] 76 U/L Normal 40-135 [facility] ([place] Comment on above: Performed By: #### P SA, GFR, LIPID, CMP #### [address] [address] ALT [Catalytic activity/Vol] 101 U/L High 16-63 [facility] ([place] Comment on above: Performed By: #### P SA, GFR, LIPID, CMP #### [address] [address] AST [Catalytic activity/Vol] 35 U/L Normal 10-40 [facility] ([place] Comment on above: Performed By: #### P SA, GFR, LIPID, CMP #### [address] [address] Bili Total 0.8 mg/dL Normal 0.2-1.0 [facility] ([place]) Comment on above: Result Comment: Use of this assay is not recommended for patients undergoing treatment with eltrombopag due to the potential for falsely elevated results. Performed By: #### P SA, GFR, LIPID, CMP #### [address] [address] BUN/Creatinine Ratio 11 ratio Normal 7-27 [facility] ([place]) Comment on above: Performed By: #### P SA, GFR, LIPID, CMP #### [address] [address] Calcium [Mass/Vol] 9.2 mg/dL Normal 8.4-10.2 [facility] ([place]) Comment on above: Performed By: #### P SA, GFR, LIPID, CMP #### [address] [address] Chloride [Moles/Vol] 103 mmol/L Normal 98-107 [facility] ([place]) Comment on above: Performed By: #### P SA, GFR, LIPID, CMP #### [address] [address] CO2 [Moles/Vol] 29 mmol/L Normal 23-31 [facility] ([place]) Comment on above: Performed By: #### P SA, GFR, LIPID, CMP #### [address] [address] Creatinine [Mass/Vol] 0.89 mg/dL Normal 0.70-1.30 [facility] ([place]) Comment on above: Performed By: #### P SA, GFR, LIPID, CMP #### [address] [address] Electrolyte Balance 11.0 mEq/L Normal 4.0-15.0 [facility] ([place]) Comment on above: Performed By: #### P SA, GFR, LIPID, CMP #### [address] [address] Globulin 3.6 G/dL Normal [facility] ([place] Comment on above: Performed By: #### P SA, GFR, LIPID, CMP #### [address] [address] Glucose [Mass/Vol] 128 mg/dL High 80-115 [facility] ([place]) Comment on above: Performed By: #### P SA, GFR, LIPID, CMP #### [address] [address] Potassium [Moles/Vol] 4.0 mmol/L Normal 3.5-5.1 [facility] ([place]) Comment on above: Performed By: #### P SA, GFR, LIPID, CMP #### [address] [address] Sodium [Moles/Vol] 143 mmol/L Normal 136-145 [facility] ([place]) Comment on above: Performed By: #### P SA, GFR, LIPID, CMP #### [address] [place], [place] [address] Total Protein 7.9 G/dL Normal 6.4-8.2 [facility] ([place]) Comment on above: Performed By: #### P SA, GFR, LIPID, CMP #### [address] [place], [place] [address] Urea nitrogen [Mass/Vol] 10 mg/dL Normal 7-18 [facility] ([place] Comment on above: Performed By: #### P SA, GFR, LIPID, CMP #### [address] [place], [place] [address] LABORATORYOrdered By: Emmanuel Kelley on 08-23-2023 Albumin DL <= 20 mg/L (U) [Mass/Vol] 1410 mcg/dL Invalid Interpretation Code AO ADM SS Albumin/Creatinine DL <= 20 mg/L (U) [Mass ratio] 13 mcg/mg Normal 0 - 30 mcg/mg AO ADM SS Creatinine (U) [Mass/Vol] 109.4 mg/dL Normal 39.0 - 259.0 mg/dL AO ADM SS LABORATORYOrdered By: SYSTEM SYSTEM on 08-23-2023 Albumin BCP dye [Mass/Vol] 4.3 G/dL Normal 3.4 - 4.8 G/dL AO ADM SS Albumin/Globulin [Mass ratio] 1.2 {ratio} Normal 1.1 - 2.5 ratio AO ADM SS ALP [Catalytic activity/Vol] 76 U/L Normal 40 - 135 U/L AO ADM SS ALT With P-5'-P [Catalytic activity/Vol] 101 U/L High 16 - 63 U/L AO ADM SS AST With P-5'-P [Catalytic activity/Vol] 35 U/L Normal 10 - 40 U/L AO ADM SS Bilirubin [Mass/Vol] 0.8 mg/dL Normal 0.2 - 1 .0 mg/dL AO ADM SS Comment on above: Interpretive Data: U se of this assay is not recommended for patients undergoing treatment with eltrombopag due to the potential for falsely elevated results. Calcium [Mass/Vol] 9.2 mg/dL Normal 8.4 - 10. 2 mg/dL AO ADM SS Chloride [Moles/Vol] 103 mmol/L Normal 98 - 10 7 mmol/L AO ADM SS CO2 [Moles/Vol] 29 mmol/L Normal 23 - 31 mmol/L AO ADM SS Creatinine [Mass/Vol] 0.89 mg/dL Normal 0.70 - 1.30 mg/dL AO ADM SS Electrolyte Balance 11.0 mEq/L Normal 4.0 - 15 .0 mEq/L AO ADM SS GFR/1.73 sq M.predicted among blacks MDRD (S/P/Bld) [Vol rate/Area] 103 ml/min/1.73sqm Invalid Interpretation Code AO Chemistry S Comment on above: Interpretive Data: GFR Population mean for , Non- Americans Ages 20-29 = 116 mL/min/1.73 sq.m. Ages 30-39 = 107 mL/min/1.73 sq.m. Ages 40-49 = 99 mL/min/1.73 sq.m. Ages 50-59 = 93 mL/min/1.73 sq.m. Ages 60-69 = 85 mL/min/1.73 sq.m. Ages 70+ = 75 mL/min/1.73 sq.m. Chronic Kidney Disease: Less than 60 mL/min/1.73 square meters End Stage Renal Disease: Less than 15 mL/min/1.73 square meters GFR/1.73 sq M.predicted among non-blacks MDRD (S/P/Bld) [Vol rate/Area] 85 ml/min/1.73sqm Invalid Interpretation Code AO Chemistry S Comment on above: Interpretive Data: GFR Population mean for , Non- Americans Ages 20-29 = 116 mL/min/1.73 sq.m. Ages 30-39 = 107 mL/min/1.73 sq.m. Ages 40-49 = 99 mL/min/1.73 sq.m. Ages 50-59 = 93 mL/min/1.73 sq.m. Ages 60-69 = 85 mL/min/1.73 sq.m. Ages 70+ = 75 mL/min/1.73 sq.m. Chronic Kidney Disease: Less than 60 mL/min/1.73 square meters End Stage Renal Disease: Less than 15 mL/min/1.73 square meters Globulin 3.6 G/dL Invalid Interpretation Code AO ADM SS Glucose [Mass/Vol] 128 mg/dL High 80 - 115 mg/dL AO ADM SS Potassium [Moles/Vol] 4.0 mmol/L Normal 3.5 - 5.1 mmol/L AO ADM SS Prostate specific Ag [Mass/Vol] 3.33 ng/mL Normal 0.00 - 4.00 ng/mL AO ADM SS Protein [Mass/Vol] 7.9 G/dL Normal 6.4 - 8.2 G/dL AO ADM SS Sodium [Moles/Vol] 143 mmol/L Normal 136 - 145 mmol/L AO ADM SS Urea nitrogen [Mass/Vol] 10 mg/dL Normal 7 - 18 mg/dL AO ADM SS Urea nitrogen/Creatinine [Mass ratio] 11 ratio Normal 7 - 27 ratio AO ADM SS LABORATORYOrdered By: Genia George on 08-23-2023 Cholesterol [Mass/Vol] 107 mg/dL Normal 0 - 200 mg/dL AO ADM SS Comment on above: Interpretive Data: C holesterol Reference Interval: Less than 200 Desirable 200-239 Borderline high risk 240 and above High risk Cholesterol in HDL [Mass/Vol] 29 mg/dL Low 40 - 60 mg/dL AO ADM SS Cholesterol in LDL [Mass/Vol] 59 mg/dL Normal 0 - 130 mg/dL AO ADM SS Triglyceride [Mass/Vol] 94 mg/dL Normal 0 - 150 mg/dL AO ADM SS Comment on above: Interpretive Data: T riglyceride Reference Interval: Less than 150 Normal 150-199 Borderline high risk 200-499 High risk 500 or higher Very high risk LIPIDon 08-23-2023 Cholesterol [Mass/Vol] 107 mg/dL Normal 0-200 [facility] ([place]) Comment on above: Result Comment: Chol esterol Reference Interval: Less than 200 Desirable 200-239 Borderline high risk 240 and above High risk Performed By: #### P SA, GFR, LIPID, CMP #### [address] [address] Cholesterol in HDL [Mass/Vol] 29 mg/dL Low 40-60 [facility] ([place]) Comment on above: Performed By: #### P SA, GFR, LIPID, CMP #### [address] [address] Cholesterol in LDL [Mass/Vol] 59 mg/dL Normal 0-130 [facility] ([place]) Comment on above: Performed By: #### P SA, GFR, LIPID, CMP #### [address] [address] Triglyceride [Mass/Vol] 94 mg/dL Normal 0-150 [facility] ([place]) Comment on above: Result Comment: Trig lyceride Reference Interval: Less than 150 Normal 150-199 Borderline high risk 200-499 High risk 500 or higher Very high risk Performed By: #### P SA, GFR, LIPID, CMP #### [address] [address] MALBRon 08-23-2023 U Creatinine 109.4 mg/dL Normal 39.0-259.0 [facility] ([place]) Comment on above: Performed By: #### M ALBR #### [address] [address] U Microalb 1410 mcg/dL Normal [facility] ([place]) Comment on above: Performed By: #### M ALBR #### [address] [address] U Ratio Alb/Cre 13 mcg/mg Normal 0-30 [facility] ([place]) Comment on above: Performed By: #### M ALBR #### [address] [address] PSAon 08-23-2023 Prostate Specific Antigen 3.33 ng/mL Normal 0.00-4.00 [facility] ([place]) Comment on above: Performed By: #### P SA, GFR, LIPID, CMP #### [address] [address] LABORATORYOrdered By: Silas Mcclain on 08-25-2022 Albumin BCP dye [Mass/Vol] 4.1 G/dL Invalid Interpretation Code 3.4 - 4.8 G/dL AO ADM SS Albumin/Globulin [Mass ratio] 1.1 {ratio} Invalid Interpretation Code 1.1 - 2.5 ratio AO ADM SS ALP [Catalytic activity/Vol] 69 U/L Invalid Interpretation Code 40 - 135 U/L AO ADM SS ALT With P-5'-P [Catalytic activity/Vol] 56 U/L Invalid Interpretation Code 16 - 63 U/L AO ADM SS AST With P-5'-P [Catalytic activity/Vol] 24 U/L Invalid Interpretation Code 10 - 40 U/L AO ADM SS Bilirubin [Mass/Vol] 0.8 mg/dL Invalid Interpretation Code 0.2 - 1.0 mg/dL AO ADM SS Calcium [Mass/Vol] 8.9 mg/dL Invalid Interpretation Code 8.4 - 10.2 mg/dL AO ADM SS Chloride [Moles/Vol] 103 mmol/L Invalid Interpretation Code 98 - 107 mmol/L AO ADM SS Cholesterol [Mass/Vol] 95 mg/dL Invalid Interpretation Code 0 - 200 mg/dL AO ADM SS Cholesterol in HDL [Mass/Vol] 27 mg/dL Invalid Interpretation Code 40 - 60 mg/dL AO ADM SS Cholesterol in LDL [Mass/Vol] 45 mg/dL Invalid Interpretation Code 0 - 130 mg/dL AO ADM SS CO2 [Moles/Vol] 32 mmol/L Invalid Interpretation Code 23 - 31 mmol/L AO ADM SS Creatinine [Mass/Vol] 0.89 mg/dL Invalid Interpretation Code 0.70 - 1.30 mg/dL AO ADM SS Electrolyte Balance 8.0 mEq/L Invalid Interpretation Code 4.0 - 15.0 mEq/L AO ADM SS Globulin 3.6 G/dL Invalid Interpretation Code AO ADM SS Glucose [Mass/Vol] 116 mg/dL Invalid Interpretation Code 80 - 115 mg/dL AO ADM SS Potassium [Moles/Vol] 3.7 mmol/L Invalid Interpretation Code 3.5 - 5.1 mmol/L AO ADM SS Protein [Mass/Vol] 7.7 G/dL Invalid Interpretation Code 6.4 - 8.2 G/dL AO ADM SS Sodium [Moles/Vol] 143 mmol/L Invalid Interpretation Code 136 - 145 mmol/L AO ADM SS Triglyceride [Mass/Vol] 116 mg/dL Invalid Interpretation Code 0 - 150 mg/dL AO ADM SS Urea nitrogen [Mass/Vol] 13 mg/dL Invalid Interpretation Code 7 - 18 mg/dL AO ADM SS Urea nitrogen/Creatinine [Mass ratio] 15 ratio Invalid Interpretation Code 7 - 27 ratio AO ADM SS LABORATORYOrdered By: SYSTEM SYSTEM on 08-25-2022 GFR 104 ml/min/1.73sqm Invalid Interpretation Code AO Chemistry S GFR Non- 86 ml/min/1.73sqm Invalid Interpretation Code AO Chemistry S LABORATORYOrdered By: Roma Major on 08-25-2022 HbA1c (Bld) [Mass fraction] 6.0 % Invalid Interpretation Code 4.3 - 6.4 % AO ADM SS LABORATORYOrdered By: Alecia Olvera on 02-23-2022 Albumin BCP dye [Mass/Vol] 4.6 G/dL Invalid Interpretation Code 3.4 - 4.8 G/dL AO ADM SS Albumin/Globulin [Mass ratio] 1.4 {ratio} Invalid Interpretation Code 1.1 - 2.5 ratio AO ADM SS ALP [Catalytic activity/Vol] 66 U/L Invalid Interpretation Code 40 - 135 U/L AO ADM SS ALT With P-5'-P [Catalytic activity/Vol] 65 U/L Invalid Interpretation Code 16 - 63 U/L AO ADM SS AST With P-5'-P [Catalytic activity/Vol] 28 U/L Invalid Interpretation Code 10 - 40 U/L AO ADM SS Bilirubin [Mass/Vol] 0.8 mg/dL Invalid Interpretation Code 0.2 - 1.0 mg/dL AO ADM SS Calcium [Mass/Vol] 9.6 mg/dL Invalid Interpretation Code 8.4 - 10.2 mg/dL AO ADM SS Chloride [Moles/Vol] 104 mmol/L Invalid Interpretation Code 98 - 107 mmol/L AO ADM SS Cholesterol [Mass/Vol] 94 mg/dL Invalid Interpretation Code 0 - 200 mg/dL AO ADM SS Cholesterol in HDL [Mass/Vol] 29 mg/dL Invalid Interpretation Code 40 - 60 mg/dL AO ADM SS Cholesterol in LDL [Mass/Vol] 49 mg/dL Invalid Interpretation Code 0 - 130 mg/dL AO ADM SS CO2 [Moles/Vol] 32 mmol/L Invalid Interpretation Code 23 - 31 mmol/L AO ADM SS Creatinine [Mass/Vol] 0.91 mg/dL Invalid Interpretation Code 0.70 - 1.30 mg/dL AO ADM SS Electrolyte Balance 6.0 mEq/L Invalid Interpretation Code 4.0 - 15.0 mEq/L AO ADM SS Globulin 3.4 G/dL Invalid Interpretation Code AO ADM SS Glucose [Mass/Vol] 110 mg/dL Invalid Interpretation Code 80 - 115 mg/dL AO ADM SS HbA1c (Bld) [Mass fraction] 6.1 % Invalid Interpretation Code 4.3 - 6.4 % AO ADM SS Potassium [Moles/Vol] 4.2 mmol/L Invalid Interpretation Code 3.5 - 5.1 mmol/L AO ADM SS Prostate specific Ag [Mass/Vol] 3.57 ng/mL Invalid Interpretation Code 0.00 - 4.00 ng/mL AO ADM SS Protein [Mass/Vol] 8.0 G/dL Invalid Interpretation Code 6.4 - 8.2 G/dL AO ADM SS Sodium [Moles/Vol] 142 mmol/L Invalid Interpretation Code 136 - 145 mmol/L AO ADM SS Triglyceride [Mass/Vol] 80 mg/dL Invalid Interpretation Code 0 - 150 mg/dL AO ADM SS Urea nitrogen [Mass/Vol] 14 mg/dL Invalid Interpretation Code 7 - 18 mg/dL AO ADM SS Urea nitrogen/Creatinine [Mass ratio] 15 ratio Invalid Interpretation Code 7 - 27 ratio AO ADM SS LABORATORYOrdered By: SYSTEM SYSTEM on 02-23-2022 GFR 101 ml/min/1.73sqm Invalid Interpretation Code AO Chemistry S GFR Non- 84 ml/min/1.73sqm Invalid Interpretation Code AO Chemistry S LABORATORYOrdered By: Silas Mcclain on 08-26-2021 Albumin BCP dye [Mass/Vol] 4.3 G/dL Invalid Interpretation Code 3.4 - 4.8 G/dL AO ADM SS Albumin/Globulin [Mass ratio] 1.2 {ratio} Invalid Interpretation Code 1.1 - 2.5 ratio AO ADM SS ALP [Catalytic activity/Vol] 75 U/L Invalid Interpretation Code 40 - 135 U/L AO ADM SS ALT With P-5'-P [Catalytic activity/Vol] 93 U/L Invalid Interpretation Code 16 - 63 U/L AO ADM SS AST With P-5'-P [Catalytic activity/Vol] 38 U/L Invalid Interpretation Code 10 - 40 U/L AO ADM SS Bilirubin [Mass/Vol] 1.0 mg/dL Invalid Interpretation Code 0.2 - 1.0 mg/dL AO ADM SS Calcium [Mass/Vol] 9.2 mg/dL Invalid Interpretation Code 8.4 - 10.2 mg/dL AO ADM SS Chloride [Moles/Vol] 102 mmol/L Invalid Interpretation Code 98 - 107 mmol/L AO ADM SS Cholesterol [Mass/Vol] 94 mg/dL Invalid Interpretation Code 0 - 200 mg/dL AO ADM SS Cholesterol in HDL [Mass/Vol] 25 mg/dL Invalid Interpretation Code 40 - 60 mg/dL AO ADM SS Cholesterol in LDL [Mass/Vol] 50 mg/dL Invalid Interpretation Code 0 - 130 mg/dL AO ADM SS CO2 [Moles/Vol] 31 mmol/L Invalid Interpretation Code 23 - 31 mmol/L AO ADM SS Creatinine [Mass/Vol] 0.84 mg/dL Invalid Interpretation Code 0.70 - 1.30 mg/dL AO ADM SS Electrolyte Balance 11.0 mEq/L Invalid Interpretation Code AO ADM SS Globulin 3.7 G/dL Invalid Interpretation Code AO ADM SS Glucose [Mass/Vol] 130 mg/dL Invalid Interpretation Code 80 - 115 mg/dL AO ADM SS HbA1c (Bld) [Mass fraction] 6.4 % Invalid Interpretation Code 4.3 - 6.4 % AO ADM SS Potassium [Moles/Vol] 3.9 mmol/L Invalid Interpretation Code 3.5 - 5.1 mmol/L AO ADM SS Protein [Mass/Vol] 8.0 G/dL Invalid Interpretation Code 6.4 - 8.2 G/dL AO ADM SS Sodium [Moles/Vol] 144 mmol/L Invalid Interpretation Code 136 - 145 mmol/L AO ADM SS Triglyceride [Mass/Vol] 94 mg/dL Invalid Interpretation Code 0 - 150 mg/dL AO ADM SS Urea nitrogen [Mass/Vol] 12 mg/dL Invalid Interpretation Code 7 - 18 mg/dL AO ADM SS Urea nitrogen/Creatinine [Mass ratio] 14 ratio Invalid Interpretation Code 7 - 27 ratio AO ADM SS LABORATORYOrdered By: SYSTEM SYSTEM on 08-26-2021 GFR 111 ml/min/1.73sqm Invalid Interpretation Code AO Chemistry S GFR Non- 92 ml/min/1.73sqm Invalid Interpretation Code AO Chemistry S [id number] 05-08-2017 [id number] 37.2 NG/ML Normal 30.0-100.0 [facility] Comment on above: Result Comment: Defi ciency Less than 20 ng/mLInsufficiency 20 - Less than 30 ng/mLSufficiency 30 - 100 ng/mL Performed By: #### L 550.95767 ####[facility] [id number] [place], [place] [address]Kn# [phone] BMPon 05-01-2017 Anion gap 9 mmol/L Normal 5-16 [facility] Comment on above: Performed By: #### L 500.04371, L500.86099 ####[facility] [id number] [place], [place] [address]Sj# [phone] BUN/Creatinine Ratio 16 mg/mg Normal 15-24 [facility] Comment on above: Performed By: #### L 500.95907, L500.11912 ####[facility] [id number] [place] [address]Aa# [phone] Calcium 8.9 mg/dL Normal 8.5-10.1 [facility] Comment on above: Performed By: #### L 500.31201, L500.84763 ####[facility] [id number] [place], [place] [address]Vq# [phone] Chloride 104 mmol/L Normal 98-107 [facility] Comment on above: Performed By: #### L 500.09692, L500.02140 ####[facility] [id number] [place] [address]Sq# [phone] CO2 28 mmol/L Normal 21-32 [facility] Comment on above: Performed By: #### L 500.52266, L500.32952 ####[facility] [id number] [place], [place] [address]Yy# [phone] Creatinine 0.798 mg/dL Normal 0.670-1.170 [facility] Comment on above: Result Comment: Jeanie ents receiving either N-Acetylcysteine (NAC) orMetamizole prior to venipuncture, may have falsely depressedresults. Performed By: #### L 500.20362, L500.55255 ####[facility] [id number] [place] [address]Ql# [phone] Glucose mass conc 101 mg/dL High 70-100 [facility] Comment on above: Result Comment: 70-1 00-Normal Fasting; 707-349-Hhgibkgr Fasting; greaterthan 126 on more than one result-Diabetes. ADA guidelines Performed By: #### L 500.26263, L500.23586 ####[facility] [id number] [place], [place] [address]Wg# [phone] Potassium molar conc 3.9 mmol/L Normal 3.5-5.1 [facility] Comment on above: Performed By: #### L 500.73574, L500.50074 ####[facility] [id number] [place] [address]Bo# [phone] Sodium 141 mmol/L Normal 136-145 [facility] Comment on above: Performed By: #### L 500.86094, L500.42278 ####[facility] [id number] [place] [address]Ii# [phone] Urea nitrogen 13 mg/dL Normal 7-26 [facility] Comment on above: Performed By: #### L 500.41846, L500.33623 ####[facility] [id number] [place] [address]Fy# [phone] GFR ESTon 05-01-2017 IF AMER Greater than 60 Normal [facility] Comment on above: Performed By: #### L 500.03321, L500.32889 ####[facility] [id number] [place] [address]Qj# [phone] IF non-AFR AMER Greater than 60 Normal [facility] Comment on above: Performed By: #### L 500.54424, L500.58104 ####[facility] [id number] [place] [address]Ej# [phone] BMPon 04-13-2017 Anion gap 10 mmol/L Normal 5-16 [facility] Comment on above: Performed By: #### L 500.03232, L500.58716 ####[facility] [id number] [place], [place] [address]Jz# [phone] BUN/Creatinine Ratio 21 mg/mg Normal 15-24 [facility] Comment on above: Performed By: #### L 500.86071, L500.56352 ####[facility] [id number] [place], [place] [address]Gf# [phone] Calcium 9.1 mg/dL Normal 8.5-10.1 [facility] Comment on above: Performed By: #### L 500.64491, L500.87321 ####[facility] [id number] [place], [place] [address]Gs# [phone] Chloride 101 mmol/L Normal 98-107 [facility] Comment on above: Performed By: #### L 500.52411, L500.44397 ####[facility] [id number] [place], [place] [address]Ow# [phone] CO2 29 mmol/L Normal 21-32 [facility] Comment on above: Performed By: #### L 500.38179, L500.48200 ####[facility] [id number] [place], [place] [address]Rb# [phone] Creatinine 0.749 mg/dL Normal 0.670-1.170 [facility] Comment on above: Result Comment: Jeanie ents receiving either N-Acetylcysteine (NAC) orMetamizole prior to venipuncture, may have falsely depressedresults. Performed By: #### L 500.73316, L500.69369 ####[facility] [id number] [place], [place] [address]Sp# [phone] Glucose mass conc 92 mg/dL Normal 70-100 [facility] Comment on above: Result Comment: 70-1 00-Normal Fasting; [id number]-Aoyshzno Fasting; greaterthan 126 on more than one result-Diabetes. ADA guidelines Performed By: #### L 500.21845, L500.78300 ####[facility] [id number] [place], [place] [address]Af# [phone] Potassium molar conc 3.8 mmol/L Normal 3.5-5.1 [facility] Comment on above: Performed By: #### L 500.69397, L500.68200 ####[facility] [id number] [place], [place] [address]Vc# [phone] Sodium 140 mmol/L Normal 136-145 [facility] Comment on above: Performed By: #### L 500.90568, L500.18917 ####[facility] [id number] [place], [place] [address]Lm# [phone] Urea nitrogen 16 mg/dL Normal 7-26 [facility] Comment on above: Performed By: #### L 500.25634, L500.87302 ####[facility] [id number] [place], [place] [address]Lj# [phone] GFR ESTon 04-13-2017 IF AMER Greater than 60 Normal [facility] Comment on above: Performed By: #### L 500.76337, L500.52105 ####[facility] [id number] [place], [place] [address]Nj# [phone] IF non-AFR AMER Greater than 60 Normal [facility] Comment on above: Performed By: #### L 500.25033, L500.80550 ####[facility] [id number] [place], [place] [address]Zh# [phone] Coding Summary.on 03-30-2017 Coding Summary. CODING DATE: 03/30/2017 FINAL [facility] STATUS: Home (Routine DC) PAYOR: Worker's Compensation APC DESCRIPTION 5521 Level 1 Imaging without Contrast 5024 Level 4 Type A ED Visits ADMIT DX: REASON FOR VISIT DX: M79.604 Pain in right leg FINAL DX: PRINCIPAL: S86.911A Strain of unspecified muscle(s) and tendon(s) at lower leg level, right leg, initial encounter SECONDARY: R20.0 Anesthesia of skin I10 Essential (primary) hypertension R26.9 Unspecified abnormalities of gait and mobility E11.9 Type 2 diabetes mellitus without complications X58.XXXA Exposure to other specified factors, initial encounter PYMT PROC APC STAT DESCRIPTION DOCTOR NAME DATE NOTE: The code number assigned matches the documented diagnosis and / or procedure in the patient's chart. However, the narrative phrase printed from the coding software may appear abbreviated, or result in slightly different terminology. Coded By: Indigo Downs Date Saved: 03/02/2017 04:54 pm Normal [facility] Encounters Encounter Date Encounter Type Care Provider Facility Start: 02-21-2024 End: 02-25-[address] ALYSA BERTRAND DO Facility:B Start: 02-21-2024 End: 02-25-[address] ALYSA THIBODEAUXR DO [facility] Start: 01-05-2024 End: 01-05-[address] ALYSA BERTRAND DO Facility:B Start: 01-05-2024 End: 01-05-[address] ALYSA BERTRAND DO [facility] Start: 12-07-2023 End: 12-07-[address] ALYSA BERTRAND DO Facility:B Start: 08-23-2023 End: 08-27-[address] ALYSA BERTRAND DO Facility:[facility] Start: 08-23-2023 End: 08-27-[address] ALYSA BERTRAND DO [facility] Start: 08-25-2022 End: 08-25-[address] ALYAS BERTRAND DO [facility] Start: 02-23-2022 End: 02-23-[address] ALYSA BERTRAND DO [facility] Start: 08-26-2021 End: 08-26-[address] ALYSA BERTRAND DO [facility] Start: 05-08-2017 Ambulatory Hermilo Tay Facility:[facility] Start: 05-01-2017 [facility] Start: 04-13-2017 Ambulatory [facility] Facility:[facility] Immunizations Immunization Date Immunization Notes Care Provider Nathaniel praveena 03-12-2021 SARS-CoV-2 (COVID-19 ) mRNA-[address] ALYSA BERTRAND DO [facility] 02-12-2021 SARS-CoV-2 (COVID-19 ) mRNA-[address] ALYSA BERTRAND DO [facility] Payers Date Payer Category Payer Private Health Insurance [id number] 2017 Unknown [id number] 2017 Medicaid [id number] 1955 Unknown [id number] 1955 Unknown [id number] 1955 Unknown [id number] 1955 Unknown [id number] Social History Date Type Detail Facility Start: 05-08-2019 Never smoked t obacco (finding) [facility] Comment on above: No Tobacco/Smoke Exp osure Sex Assigned At [facility] Evaluation + Plan note Note Date & Type Note Facility Evaluation + Plan note Future Appointments Appointment Date:09/01/2021 08:00:00 AM Scheduled Provider:ALYSA BERTRAND DO Location:[facility] Appointment Type: OV [facility] Evaluation + Plan note Note Date & Type Note Facility Evaluation + Plan note Future Appointments Appointment Date:03/02/2022 08:00:00 AM Scheduled Provider:ALYSA BERTRAND DO Location:[facility] Appointment Type:PC Wellness Medicare [facility] Evaluation + Plan note Note Date & Type Note Facility Evaluation + Plan note Future Appointments Appointment Date:09/01/2022 08:00:00 AM Scheduled Provider:ALYSA BERTRAND DO Location:[facility] Appointment Type:PC OV [facility] Evaluation + Plan note Note Date & Type Note Facility Evaluation + Plan note Future Appointments Appointment Date:08/31/2023 08:00:00 AM Scheduled Provider:ALYSA BERTRAND DO Location:[facility] Appointment Type: Wellness Medicare [facility] Evaluation + Plan note Laboratory Note Date & Type Note Facility Evaluation + Plan note Future Appointments Appointment Date:02/21/2024 08:45:00 AM Scheduled Provider: Location:[facility] Appointment Type:PC Nurse Lab Appointment Date:02/29/2024 09:00:00 AM Scheduled Provider:ALYSA BERTRAND DO Location:[facility] Appointment Type:PC OV Future Scheduled [id number] Hemoglobin 03/01/24Lipid Profile 03/01/24Complete Metabolic Panel 03/01/[address] [facility] Evaluation + Plan note Note Date & Type Note Facility Evaluation + Plan note Future Appointments Appointment Date:02/29/2024 09:00:00 AM Scheduled Provider:ALYSA BERTRAND DO Location:[facility] Appointment Type:PC OV [facility] Hospital course Narrative Note Date & Type Note Facility Hospital course Narrative No data available for this section [facility] Hospital Discharge instructions Note Date & Type Note Facility Hospital Discharge instructions No data available for this section [facility] Progress note Note Date & Type Note Facility Progress note No data available for this section [facility] Summary Purpose Family History No Family History Records FoundNo Family History Records Found No data available for this section No data available for this section No Family History Records Found No data available for this section Advance Directives No Advanced Directives Records FoundNo Advanced Directives Records FoundNo Advanced Directives Records Found Additional Source Comments (unrecognized sect ion and content) No Status Records FoundNo Status Records FoundNo Status Records Found INFORMATION SOURCE (unrecogn ized section and content) DATE CREATED AUTHOR 03/13/2018 [facility]y [employer] [facility] DATE CREATED AUTHOR AUTHOR'S ORGANIZ ATION 03/14/2018 [facility] DATE CREATED AUTHOR AUTHOR'S ORGANIZ ATION 02/25/2024 [facility] [place] Care Team (unrecognized sect ion and content) Personnel Name: ALYSA BERTRAND DO Address: [address] [place] [address] Care Team Personnel Name: ALYSA BERTRAND DO Position: P4 Physician - Primary Care Member Role: Primary Care Physician Address: Address: [address] [place] [address] Care Team Related Persons Name: FLORIDA MENDES Care Team Personnel Name: ALYSA BERTRAND DO Position: P4 Physician - Primary Care Member Role: Primary Care Physician Address: Address: [address] [place] [address] Care Team Related Persons Name: [place] MENDES Care Team Personnel Name: ALYSA BERTRAND DO Position: P4 Physician - Primary Care Member Role: Primary Care Physician Address: Address: [address] [place] [address] Care Team Related Persons Name: [place] MENDES Care Team (unrecognized sect ion and content) Care Team Personnel Name: ALYSA BERTRAND DO Position: P4 Physician - Primary Care Member Role: Primary Care Physician Address: Address: [address] [place] [address] Care Team Related Persons Name: [place] MENDES FOR RECORDS PERTAINING TO PATIENTS WHO ARE OR HAVE BEEN ENROLLED IN A CHEMICAL DEPENDENCY/SUBSTANCEABUSE PROGRAM, SOME INFORMATION MAY BE OMITTED. This clinical summary was aggregated from multiple sources. Caution should be exercised in using it in the provision of clinical care. This summary normalizes information from multiple sources, and as a consequence, information in this document may materially change the coding, format and clinical context of patient data. In addition, data may be omitted in some cases. CLINICAL DECISIONS SHOULD BE BASED ON THE PRIMARY CLINICAL RECORDS. [facility] [employer] [facility]. provides no warranty or guarantee of the accuracy or completeness of information in this document.
[2025-03-13 07:22] LABS: Absolute Lymphocyte Count 1.44 X10^3/uL (0.83-4.51); Absolute Neutrophil Count 3.8 X10^3/uL (2.0-7.7); Basophil# 0.03 X10^3/uL; Basophil% 0.5 % (0-1); Eosinophil# 0.18 X10^3/uL; Eosinophils% 2.9 % (0-5); Hematocrit 46.9 % (40-54); Hemoglobin 15.6 g/dL (13.0-16.5); Lymphocyte # 1.44 X10^3/ul (0.83-4.51); Lymphocyte % 23.1 % (19-41); Mean Corp Hgb Conc 33.3 g/dL (32-36); Mean Corpuscular Hgb 29.9 pg (27.0-32.0); Mean Corpuscular Volume 89.8 fL (80-94); Mean Platelet Vol. 10.5 fl (6.2-12.0); Monocyte# 0.73 X10^3/uL; Monocyte% 11.7 % (0-10); NRBC Flagged by Analyzer 0 % (0-5); Neutrophil # 3.79 X10^3/uL (2.7-7.7); Neutrophil % 60.8 % (47-70); Platelet Count 196 K/mm3 (150-450); RBC Distribution Width CV 12.9 % (11.6-14.6); RBC Distribution Width SD 42.4 fl (35.1-43.9); Red Blood Count 5.22 M/mm3 (4.6-6.2); White Blood Count 6.2 K/mm3 (4.4-11.0)
[2025-03-13 08:45] LABS: ALB/GLOB Ratio 1.3 RATIO (0.9-2.4); AST(SGOT) 43 U/L (<=37); Alanine Aminotransfer ALT/SGPT 88 U/L (<=46); Albumin, Serum 4.4 g/dL (3.4-4.8); Alkaline Phosphatase 66 U/L (40-129); Anion Gap 13 (5-15); BUN 12 mg/dL (4-19); BUN/Creat Ratio 14.8 RATIO (10-20); Calcium,Total 9.1 mg/dL (7.6-11.0); Carbon Dioxide 26.1 mmol/L (21.0-32.0); Chloride 103 mmol/L (98-108); Cholesterol 99 mg/dL (<=200); Creatinine, Serum 0.79 mg/dL (0.70-1.20); EST Glomerular Filtration Rate 97 (>60); Globulin 3.3 g/dL (2.2-4.2); Glucose 141 mg/dL (70-99); High Density Lipoprotein 24 mg/dL; Low Density Lipoprotein Calc. 48 mg/dL; PSA,Total - Annual Screen 2.77 ng/mL (0.02-4.00); Potassium 3.6 mmol/L (3.3-5.1); Protein, Total 7.7 g/dL (5.9-8.4); Sodium Level 141 mmol/L (133-145); Total Bilirubin 0.74 mg/dL (0.00-1.30); Triglycerides 137 mg/dL; Very Low Density Lipoprotein 27 mg/dL (5-40); cholesterol:hdl ratio screen 4.17
== END | disposition home or self-care (01) ==
PROVIDERS: PCP Nurse Practitioner Family; Referring Provider Nurse Practitioner Family; Visit Provider Nurse Practitioner Family
DX: E78.5 Hyperlipidemia, unspecified (principal); I10 Essential (primary) hypertension; Z12.5 Encounter for screening for malignant neoplasm of prostate
CPT/HCPCS: 36415; 80053; 80061; 84153; 85025; G0103

== ENCOUNTER → 2025-09-01 | Outpatient (CLI) | payer MEDICARE, SELFPAY ==
[2025-09-01 18:39] LABS: Creatinine, Urine (random) 53.70 mg/dL (39.00-259.00); Protein, Urine (Random) 8.9 mg/dL (0.0-12.0); Protein:Creat Ratio 166 mg/g CRE (0-200)
== END | disposition home or self-care (01) ==
PROVIDERS: PCP Nurse Practitioner Family; Visit Provider Nurse Practitioner Family
DX: E11.69 Type 2 diabetes mellitus with other specified complication (principal); I10 Essential (primary) hypertension
CPT/HCPCS: 82570; 84156